=== PATIENT | male | born 1935 | race American Indian/Alaskan Native ===

== ENCOUNTER 2018-08-01 11:05 | Inpatient (IN) | payer MEDICARE ==
[2018-08-01 11:06] VITALS: BMI 19.2
[2018-08-01 13:43] LABS: VENOUS BLOOD GAS PCO2 40 mmHg (40-60); VENOUS BLOOD GAS PO2 34 mm/Hg (30-55); VENOUS BLOOD PH 7.43 (7.32-7.43)
--- NOTE | 2018-08-01 13:45 | ED PDOC ---
HPI: Altered Mental Status Time Seen by Provider: 08/01/18 11:28 Chief Complaint (Nursing): Weakness/Neurological Deficit Chief Complaint (Provider): Weakness/Neurological Deficit History Per: Patient, EMS History/Exam Limitations: None Onset/Duration Of Symptoms: Days Additional Complaint(s): 82 year old male with a past medical history of end stage renal disease who was brought to the ED by EMS for medical evaluation. According to home health care nurse who visits daily, patient appears to be weak and confuse for several days. He is supposed to go to dialysis 3 times a week but has not gone in 1 week. Patient complains of chest pain and states that he has had it for a while. He does not walk and he doesnt know why he is here. Patient cannot remember any of his doctors names. Patient denies any shortness of breath or headaches. PMD: unclear E [employer] Merchant: Dr. Matamoros (Doctor was in Ed and identified patient as under his care) Past Medical History Reviewed: Historical Data, Nursing Documentation, Vital Signs Vital Signs: Last Vital Signs Temp 98.5 F 08/01/18 11:07 Pulse 91 H 08/01/18 11:07 Resp 18 08/01/18 11:07 BP 142/82 08/01/18 11:07 Pulse Ox 99 08/01/18 11:07 - Medical History PMH: End Stage Renal Disease - Surgical History Other surgeries: left upper arm shunt - Family History Family History: States: Unknown Family Hx - Social History Current smoker - smoking cessation education provided: No Alcohol: None Drugs: Denies - Home Medications Home Medications: Ambulatory Orders Medication Instructions Recorded Carvedilol [Coreg] 6.25 mg PO Q12 08/01/18 Donepezil [Aricept] 10 mg PO HS 08/01/18 Fluticasone/Vilanterol [Breo 1 puff IH Q12 08/01/18 Ellipta 200-25 Mcg INH] Folic Acid/Vit B Complex and C 1 tab PO DAILY 08/01/18 [Renal Vitamin Tablet] Memantine [Namenda] 5 mg PO Q12 08/01/18 Pantoprazole Sodium [Protonix] 40 mg PO DAILY 08/01/18 RX: Allopurinol [Zyloprim] 100 mg PO DAILY 08/01/18 RX: Calcitriol [Rocaltrol] 1 mcg PO DAILY 08/01/18 Tamsulosin [Flomax] 0.4 mg PO DAILY 08/01/18 Umeclidinium [place] [Incruse 1 puff IH DAILY 08/01/18 Ellipta] amLODIPine [Norvasc] 5 mg PO DAILY 08/01/18 - Allergies Allergies/Adverse Reactions: Allergies Allergy/AdvReac Type Severity Reaction Status Date / Time No Known Allergies Allergy Verified 08/01/18 11:15 Review of Systems ROS Statement: Except As Marked, All Systems Reviewed And Found Negative Cardiovascular: Positive for: Chest Pain Respiratory: Negative for: Shortness of Breath Neurological: Positive for: Weakness (generalized ). Negative for: Headache Physical Exam - Reviewed Nursing Documentation Reviewed: Yes Vital Signs Reviewed: Yes - Physical Exam Appears: Positive for: Non-toxic, No Acute Distress (comfortable ) Head Exam: Positive for: ATRAUMATIC, NORMAL INSPECTION, NORMOCEPHALIC Skin: Positive for: Normal Color, Warm, DRY Eye Exam: Positive for: EOMI, Normal appearance, PERRL ENT: Positive for: Other (dry mucous membranes ) Neck: Positive for: Normal, Painless ROM Cardiovascular/Chest: Positive for: Regular Rate, Rhythm. Negative for: Murmur Respiratory: Positive for: Normal Breath Sounds. Negative for: Respiratory Distress Pulses-Radial (L): 2+ Pulses-Radial (R): 2+ Gastrointestinal/Abdominal: Positive for: Normal Exam, Soft. Negative for: Tenderness Extremity: Positive for: Normal ROM, Other (left upper arm shunt, chronic decubitus ulcers on both feet and ankles). Negative for: Deformity Neurologic/Psych: Positive for: Alert, Oriented (x3). Negative for: Motor/Se nsory Deficits - Laboratory Results Result Diagrams: 08/02/18 04:48 08/02/18 04:48 - ECG O2 Sat by Pulse Oximetry: 99 (RA) Pulse Ox Interpretation: Normal - Critical Care Total Time (In Min): 30 Documented Critical Care: Time excludes all time spent performint seperately billable procedures Medical Decision Making Medical Decision Making: Time: 12:07 Impression: chest pain, generalized weakness, end stage renal disease on dialysis and chronic decubitus ulcers Plan: --VBG --EKG --CMP --CPK --Magnesium --Troponin --CBC --Chest X-Ray --Ativan 2 mg IM --Blood Culture --Urine Culture Update 1400 Labs reviewed and reveal hyperkalemia and uremia. -Calcium gluconate 1 g IV --Insulin 5 unit IV -D50 IV -Albuterol 3ml INH -Kayexalate 15g PO [address] Matamoros who will arrange emergent dyalisis today Scribe Attestation: Documented by Malu Stoner, acting as a scribe for Crystal Wiseman. Provider Scribe Attestation: All medical record entries made by the Scribe were at my direction and personally dictated by me. I have reviewed the chart and agree that the record a ccurately reflects my personal performance of the history, physical exam, medical decision making, and the department course for this patient. I have also personally directed, reviewed, and agree with the discharge instructions and disposition. Disposition - Clinical Impression Clinical Impression: Hyperkalemia, End stage renal disease, Decubitus ulcer, Volume overload - Patient ED Disposition Is Patient to be Admitted: Yes Discussed With : Hailey Aparicio Doctor Will See Patient In The: ED Counseled Patient/Family Regarding: Studies Performed, Diagnosis - Disposition Disposition Time: 14:00 Condition: FAIR - Pt Status Changed To: Hospital Disposition Of: Inpatient - Admit Certification Admit to Inpatient:: After my assessment, the patient will require hospitaliza tion for at least two midnights. This is because of the severity of symptoms shown, intensity of services needed, and/or the medical risk in this patient being treated as an outpatient. - POA Present On Arrival: Pressure Ulcer
[2018-08-01 14:01] LABS: BASO # 0.1 K/uL (0.0-0.2); BASO % 0.4 % (0.0-2.0); HEMOGLOBIN 9.6 g/dL (12.0-18.0); LYMPH # 0.3 K/uL (1.0-4.3); LYMPH % 1.9 % (20.0-40.0); MEAN CELL VOLUME 95.7 fl (80.0-94.0); MEAN CORPUSCULAR HEMOGLOBIN 30.7 pg (27.0-31.0); MEAN CORPUSCULAR HGB CONC 32.1 g/dL (33.0-37.0); MEAN PLATELET VOLUME 8.3 fl (7.2-11.7); MONO % 6.4 % (0.0-10.0); NEUT # 13.7 K/uL (1.8-7.0); NEUT % 91.3 % (50.0-75.0); NRBC % 0.3 % (0.0-0.0); PLATELET COUNT 198 K/uL (130-400); RBC 3.13 Mil/uL (4.40-5.90); RED CELL DISTRIBUTION WIDTH 21.3 % (11.5-14.5)
[2018-08-01 14:07] LABS: TROPONIN I 0.061 ng/mL (0.00-0.120)
[2018-08-01 15:07] LABS: ALBUMIN 3.4 g/dL (3.5-5.0); CALCIUM 9.7 mg/dL (8.4-10.2)
[2018-08-01] MEDS ORDERED: Insulin Regular 100 units/ml IV STA (15:15)
[2018-08-01] MEDS ORDERED: Albuterol 0.083% Inhal Sol (2.5 mg/3 mL) UD INH ONE (15:16)
[2018-08-01] MEDS ORDERED: Sod Polystyrene Sulf 15 gm/60 ml Susp PO ONE (15:16)
[2018-08-01] MEDS ORDERED: Dextrose 50% SYRINGE Inj (50 ml) IVP ONE (15:16)
[2018-08-01] MEDS ORDERED: Insulin Regular 100 units/ml ONE (15:28)
[2018-08-01] MEDS ORDERED: Albuterol 0.083% Inhal Sol (2.5 mg/3 mL) UD ONE (15:29)
[2018-08-01] MEDS ORDERED: Dextrose 50% SYRINGE Inj (50 ml) ONE (15:29)
--- NOTE | 2018-08-01 15:35 | RAD ---
Date of service: 08/01/2018 PROCEDURE: CHEST RADIOGRAPH, 1 VIEW HISTORY: chest pain COMPARISON: Chest radiograph dated 03/22/2010 FINDINGS: LUNGS: Medial left lower lobe lobe/retrocardiac infiltrate. PLEURA: No pneumothorax or pleural fluid seen. CARDIOVASCULAR: Aortic atherosclerotic calcifications. Cardiomediastinal silhouette stably enlarged. OSSEOUS STRUCTURES: Unchanged. VISUALIZED UPPER ABDOMEN: Normal. OTHER FINDINGS: Left axillary vascular stent. IMPRESSION: Retrocardiac infiltrate.
--- NOTE | 2018-08-01 15:38 | CP.PCM.HP ---
<Hailey Aparicio - Last Filed: 08/02/18 10:23> History of Present Illness - History of Present Illness History of Present Illness: HPI: 82 YO male with PMHx of ESRD on HD, HTN, dementia, was brought to the hospital by ambulance for evaluation. Home health care nurse states that patient has been weaker then usual. Per RN, pt did not recieve HD in the past week as scheduled, lives at home with . Pt this time is not alert or oriented. Denies chest pain, dyspnea, abdominal pain. PMD: unknown Per chart review PMHx of ESRD on HD, HTN, dementia Allergies: NKDA Present on Admission - Present on Admission Any Indicators Present on Admission: No Review of Systems - Constitutional Constitutional: absent: Fever - Cardiovascular Cardiovascular: absent: Chest Pain - Respiratory Respiratory: absent: Dyspnea - Gastrointestinal Gastrointestinal: absent: Abdominal Pain Past Patient History - Past Social History Alcohol: None Drugs: Denies Home Situation {Lives}: With Family Meds Allergies/Adverse Reactions: Allergies Allergy/AdvReac Type Severity Reaction Status Date / Time No Known Allergies Allergy Verified 08/01/18 11:15 Physical Exam - Constitutional Appears: No Acute Distress, Other (NC on 2L, NAD, unkempt ) - Head Exam Head Exam: NORMAL INSPECTION - ENT Exam ENT Exam: Mucous Membranes Moist - Respiratory Exam Respiratory Exam: Clear to Auscultation Bilateral, NORMAL BREATHING PATTERN. absent: Wheezes - Cardiovascular Exam Cardiovascular Exam: REGULAR RHYTHM, +S1, +S2 - GI/Abdominal Exam GI & Abdominal Exam: Normal Bowel Sounds, Soft. absent: Tenderness - Extremities Exam Additional comments: Fistula noted in L arm, palpable thrill appreciated DTI and small ulcerations noted in the lower ext b/l, no weeping noted Results - Vital Signs Recent Vital Signs: Last Vital Signs Temp 98.5 F 08/01/18 11:07 Pulse 91 H 08/01/18 11:07 Resp 18 08/01/18 11:07 BP 142/82 08/01/18 11:07 Pulse Ox 99 08/01/18 15:28 - Labs Result Diagrams: 08/02/18 04:48 08/02/18 04:48 Labs: Laboratory Results - last 24 hr 08/01/18 08/01/18 08/01/18 11:18 12:07 13:20 WBC 15.0 H RBC 3.13 L Hgb 9.6 L Hct 30.0 L MCV 95.7 H MCH 30.7 MCHC 32.1 L RDW 21.3 H Plt Count 198 MPV 8.3 Neut % (Auto) 91.3 H Lymph % (Auto) 1.9 L [place] % (Auto) 6.4 Eos % (Auto) 0.0 Baso % (Auto) 0.4 Neut # (Auto) 13.7 H Lymph # (Auto) 0.3 L [place] # (Auto) 1.0 H Eos # (Auto) 0.0 Baso # (Auto) 0.1 pO2 34 VBG pH 7.43 VBG pCO2 40 VBG HCO3 26.0 VBG Total CO2 27.7 VBG O2 Sat (Calc) 65.7 H VBG Base Excess 2.0 VBG Potassium 7.0 H* Sodium 142.0 Chloride 107.0 Glucose 96 Lactate 2.6 H FiO2 21.0 Crit Value Called To Sarah brown md Crit Value Called By 15 Crit Value Read Back Y Blood Gas Notified Time 1343 Potassium Carbon Dioxide Anion Gap BUN Creatinine Est GFR ( Amer) Est GFR (Non-Af Amer) POC Glucose (mg/dL) 110 Random Glucose Calcium Magnesium Total Bilirubin AST ALT Alkaline Phosphatase Total Creatine Kinase Troponin I Total Protein Albumin Globulin Albumin/Globulin Ratio Venous Blood Potassium 7.0 H* 08/01/18 14:50 WBC RBC Hgb Hct MCV MCH MCHC RDW Plt Count MPV Neut % (Auto) Lymph % (Auto) Sutton % (Auto) Eos % (Auto) Baso % (Auto) Neut # (Auto) Lymph # (Auto) Sutton # (Auto) Eos # (Auto) Baso # (Auto) pO2 VBG pH VBG pCO2 VBG HCO3 VBG Total CO2 VBG O2 Sat (Calc) VBG Base Excess VBG Potassium Sodium 142 Chloride 104 Glucose Lactate FiO2 Crit Value Called To Crit Value Called By Crit Value Read Back Blood Gas Notified Time Potassium 6.8 H* Carbon Dioxide 22 Anion Gap 23 H BUN 125 H* Creatinine 12.4 H* Est GFR ( Amer) 5 Est GFR (Non-Af Amer) 4 POC Glucose (mg/dL) Random Glucose 95 Calcium 9.7 Magnesium 3.0 H Total Bilirubin 0.6 AST 70 H ALT 25 Alkaline Phosphatase 80 Total Creatine Kinase 819 H Troponin I 0.0610 Total Protein 6.6 Albumin 3.4 L Globulin 3.3 Albumin/Globulin Ratio 1.0 Venous Blood Potassium Assessment & Plan - Assessment and Plan (Free Text) Assessment: Assessment/Plan: 82 YO male with PMHx of ESRD on HD, HTN, dementia is admitted for ESRD (ON HD), and hyperkalemia. ESRD, on HD -poor renal functions, missed HD -Nephrology consulted, urgent HD -follow up post HD blood work Hyperkalemia -likely 2/2 to missed HD -Insulin, albuterol INH, calcium gluconate -EKG with 1st deg block, no acute ST changes -follow up K post HD Pneumonia -CXR sig for retrocardaic infiltrate -afebrile, neutrophilia -follow up Bcx, Ucx, sputum cx and wound cx -start azithromycin and Ceftriaxone B/L foot ulcers -chronic -podiatry on board -MRI pending, follow up Anemia -anemia of chronic disease, ESRD -follow up DVT prolx -Heparin SC Plan as ordered <oRnny Guillen K - Last Filed: 08/03/18 13:31> Results - Vital Signs Recent Vital Signs: Last Vital Signs Temp 97.1 F L 08/03/18 12:33 Pulse 72 08/03/18 12:55 Resp 20 08/03/18 12:33 BP 96/44 L 08/03/18 12:55 Pulse Ox 93 L 08/03/18 12:33 - Labs Result Diagrams: 08/03/18 05:25 08/03/18 05:25 Labs: Laboratory Results - last 24 hr 08/02/18 08/02/18 08/02/18 16:03 21:41 22:36 WBC RBC Hgb Hct MCV MCH MCHC RDW Plt Count Sodium Potassium Chloride Carbon Dioxide Anion Gap BUN Creatinine Est GFR ( Amer) Est GFR (Non-Af Amer) POC Glucose (mg/dL) 71 76 86 Random Glucose Calcium Phosphorus Magnesium Total Bilirubin AST ALT Alkaline Phosphatase Total Protein Albumin Globulin Albumin/Globulin Ratio Blood Type Antibody Screen Crossmatch BBK History Checked 08/03/18 08/03/18 08/03/18 05:25 05:25 05:51 WBC 8.4 RBC 2.64 L Hgb 7.9 L Hct 24.4 L MCV 92.7 MCH 30.1 MCHC 32.5 L RDW 21.1 H Plt Count 153 Sodium 139 Potassium 5.1 H Chloride 100 Carbon Dioxide 28 Anion Gap 16 BUN 74 H Creatinine 7.9 H* D Est GFR ( Amer) 8 Est GFR (Non-Af Amer) 7 POC Glucose (mg/dL) 97 Random Glucose 93 Calcium 8.8 Phosphorus 7.4 H Magnesium 2.6 H Total Bilirubin 0.4 AST 95 H D ALT 36 Alkaline Phosphatase 72 Total Protein 5.7 L Albumin 2.7 L Globulin 3.1 Albumin/Globulin Ratio 0.9 L Blood Type Antibody Screen Crossmatch BBK History Checked 08/03/18 10:08 WBC RBC Hgb Hct MCV MCH MCHC RDW Plt Count Sodium Potassium Chloride Carbon Dioxide Anion Gap BUN Creatinine Est GFR ( Amer) Est GFR (Non-Af Amer) POC Glucose (mg/dL) Random Glucose Calcium Phosphorus Magnesium Total Bilirubin AST ALT Alkaline Phosphatase Total Protein Albumin Globulin Albumin/Globulin Ratio Blood Type B POSITIVE Antibody Screen Negative Crossmatch See Detail BBK History Checked Patient has bt Assessment & Plan - Assessment and Plan (Free Text) Assessment: Patient was personally seen and examined by me in rounds with residents. Available labs and diagnostic data reviewed. Case, Patient's condition and management plan discussed with residents in rounds. Agree with resident's progress note. Plan: As ordered.
[2018-08-01 15:46] LABS: BANDS 1 % (0-2); LYMPHOCYTE 3 % (20-50); MONOCYTE 6 % (0-10); NEUTROPHIL 90 % (42-75); TOTAL CELLS COUNTED 100
[2018-08-01 15:48] LABS: HYPERSEGMENTATION PRESENT; PLATELET ESTIMATE NORMAL (NORMAL)
--- NOTE | 2018-08-01 16:29 | CP.PCM.CON ---
History of Present Illness - History of Present Illness History of Present Illness: Podiatry Consult for Dr. Garcia: 82 year old male patient, with PMHx of EDRD, HTN, dementia, seen and evaluated, for L decubitus ulcers. Patient states that his feet hurt when they are touched. Unable to obtain history secondary to altered mental status. Per chart reviewed: PMHx: ESRD, HTN, Dementia ALL: NKDA Review of Systems - Constitutional Constitutional: As Per HPI Past Patient History - Past Social History Alcohol: None Drugs: Denies Meds Allergies/Adverse Reactions: Allergies Allergy/AdvReac Type Severity Reaction Status Date / Time No Known Allergies Allergy Verified 08/01/18 11:15 - Medications Medications: Current Medications Allopurinol (Zyloprim) 100 mg PO DAILY MICA Amlodipine Besylate (Norvasc) 5 mg PO DAILY MICA Calcitriol (Rocaltrol) 1 mcg PO DAILY MICA Carvedilol (Coreg) 6.25 mg PO Q12 MICA Donepezil HCl (Aricept) 10 mg PO HS MICA Home Med (Umeclidinium [place] [Incruse Ellipta]) 1 puff IH DAILY MICA Calcium Gluconate 4.6 meq/ (Sodium Chloride) 59.8924 mls @ 59.892 mls/hr IV ONCE ONE Stop: 08/01/18 16:29 Last Admin: 08/01/18 15:57 Dose: 59.892 mls/hr Memantine (Namenda) 5 mg PO Q12 MICA Pantoprazole Sodium (Protonix Ec Tab) 40 mg PO DAILY MICA Fluticasone/Salmeterol (Advair Diskus 250/50) 1 puff IH Q12 MICA Tamsulosin HCl (Flomax) 0.4 mg PO DAILY MICA Vitamin B Complex/Vit C/Folic Acid (Nephro-Jules) 1 tab PO DAILY MICA Physical Exam - Constitutional Appears: Non-toxic, No Acute Distress - Head Exam Head Exam: ATRAUMATIC, NORMOCEPHALIC - Extremities Exam Additional comments: B/L lower extremity focused exam: Vasc: DP/PT 1/4, CFT > 3 seconds, TG warm to warm, no pedal edema present Ortho: Pain with palpation of feet bilaterally, Hammertoe deformity 2-5 bilaterally with crossover deformity of 2nd digit, HAV deformity bilaterally, no pain with calf compression Neuro: Gross sensation intact, unable to assess protective sensation secondary to patient's mental status Derm: LLE: DTI to left heel secondary to pressure, Superficial ulceration secondary to skin breakdown, measuring approximately 3.0x1.0x.1cm,with 100% granular base, no drainage, no purulence, no erythema, no clinical signs of infection noted. Necrotic distal tip of the hallux with color changes, no drainage, no purulence, no erythema. Friable, xerotic skin noted to b/l lower extremities. Elongated, dystrophic nail s x10. Interdigital maceration to all webspaces. Results - Vital Signs Recent Vital Signs: Last Vital Signs Temp 98.5 F 08/01/18 11:07 Pulse 91 H 08/01/18 11:07 Resp 18 08/01/18 11:07 BP 142/82 08/01/18 11:07 Pulse Ox 99 08/01/18 15:28 - Labs Result Diagrams: 08/02/18 04:48 08/02/18 04:48 Labs: Laboratory Results - last 24 hr 08/01/18 08/01/18 08/01/18 11:18 12:07 13:20 WBC 15.0 H RBC 3.13 L Hgb 9.6 L Hct 30.0 L MCV 95.7 H MCH 30.7 MCHC 32.1 L RDW 21.3 H Plt Count 198 MPV 8.3 Neut % (Auto) 91.3 H Lymph % (Auto) 1.9 L [place] % (Auto) 6.4 Eos % (Auto) 0.0 Baso % (Auto) 0.4 Neut # (Auto) 13.7 H Lymph # (Auto) 0.3 L [place] # (Auto) 1.0 H Eos # (Auto) 0.0 Baso # (Auto) 0.1 Neutrophils % (Manual) 90 H Band Neutrophils % 1 Lymphocytes % (Manual) 3 L Monocytes % (Manual) 6 Hypersegmented Polys Present Platelet Estimate Normal pO2 34 VBG pH 7.43 VBG pCO2 40 VBG HCO3 26.0 VBG Total CO2 27.7 VBG O2 Sat (Calc) 65.7 H VBG Base Excess 2.0 VBG Potassium 7.0 H* Sodium 142.0 Chloride 107.0 Glucose 96 Lactate 2.6 H FiO2 21.0 Crit Value Called To Sarah brown md Crit Value Called By 15 Crit Value Read Back Y Blood Gas Notified Time 1343 Potassium Carbon Dioxide Anion Gap BUN Creatinine Est GFR ( Amer) Est GFR (Non-Af Amer) POC Glucose (mg/dL) 110 Random Glucose Calcium Magnesium Total Bilirubin AST ALT Alkaline Phosphatase Total Creatine Kinase Troponin I Total Protein Albumin Globulin Albumin/Globulin Ratio Venous Blood Potassium 7.0 H* 08/01/18 14:50 WBC RBC Hgb Hct MCV MCH MCHC RDW Plt Count MPV Neut % (Auto) Lymph % (Auto) Bell % (Auto) Eos % (Auto) Baso % (Auto) Neut # (Auto) Lymph # (Auto) Bell # (Auto) Eos # (Auto) Baso # (Auto) Neutrophils % (Manual) Band Neutrophils % Lymphocytes % (Manual) Monocytes % (Manual) Hypersegmented Polys Platelet Estimate pO2 VBG pH VBG pCO2 VBG HCO3 VBG Total CO2 VBG O2 Sat (Calc) VBG Base Excess VBG Potassium Sodium 142 Chloride 104 Glucose Lactate FiO2 Crit Value Called To Crit Value Called By Crit Value Read Back Blood Gas Notified Time Potassium 6.8 H* Carbon Dioxide 22 Anion Gap 23 H BUN 125 H* Creatinine 12.4 H* Est GFR ( Amer) 5 Est GFR (Non-Af Amer) 4 POC Glucose (mg/dL) Random Glucose 95 Calcium 9.7 Magnesium 3.0 H Total Bilirubin 0.6 AST 70 H ALT 25 Alkaline Phosphatase 80 Total Creatine Kinase 819 H Troponin I 0.0610 Total Protein 6.6 Albumin 3.4 L Globulin 3.3 Albumin/Globulin Ratio 1.0 Venous Blood Potassium Assessment & Plan - Assessment and Plan (Free Text) Assessment: 82 year old male patient, with PMHx of EDRD, HTN, dementia, seen and evaluated, for L decubitus ulcers. Plan: Patient seen and evaluated Discussed patient in detail with Dr. Jose Grayebgeorgiana, WBC 15.0 Foot x-rays ordered; pending MRI of LLE ordered; pending Local wound care to LLE: betadine, DSD Will continue to follow Thank you for the consult - Date & Time Date: 08/01/18 Time: 16:28
[2018-08-01] MEDS ORDERED: Albuterol 0.083% Inhal Sol (2.5 mg/3 mL) UD INH SCH (17:15)
[2018-08-01] MEDS ORDERED: Azithromycin 500 MG in Sodium Chloride 0.9% 250 ML IVPB STA (17:40)
[2018-08-01] MEDS ORDERED: Sodium Chloride 3% for Inhalation 4 ML VIAL.NEB IH PRN (17:41)
--- NOTE | 2018-08-01 17:49 | RAD ---
Date of service: 08/01/2018 PROCEDURE: Bilateral Feet Radiographs. HISTORY: b/l foot ulcerations and deformity COMPARISON: None. FINDINGS: BONES: Right Foot: No acute fracture. Pes planus. Left Foot: No acute fracture. Pes planus. JOINTS: Right Foot: Joint space narrowing. Left Foot: Joint-space narrowing. SOFT TISSUES: Right Foot: Normal. Left Foot: Normal. OTHER FINDINGS: None. IMPRESSION: Markedly limited evaluation due to patient positioning. No demonstrated fracture or dislocation. Pes planus bilaterally. Degenerative changes.
--- NOTE | 2018-08-01 18:24 | CP.PCM.CON ---
History of Present Illness - History of Present Illness History of Present Illness: This 82 years of age male known with end-stage renal disease on maintenance hemodialysis. He did not show up for 1 week for dialysis and he came to the emergency room as noted in the emergency room note with dizziness weakness patient is lethargic we could not get much information. Blood test showed severe elevation BUN and creatinine related to missing dialysis. PMH Dementia. Hypertension. End-stage renal disease. Noncompliance. Past medical history Social history not available Review of Systems - Constitutional Constitutional: Anorexia. absent: Chills - EENT Nose/Mouth/Throat: absent: Epistaxis, Sore Throat - Cardiovascular Cardiovascular: Edema, Leg Ulcers. absent: Acrocyanosis, Chest Pain - Gastrointestinal Gastrointestinal: Nausea. absent: Abdominal Pain, Coffee Ground Emesis - Genitourinary Genitourinary: Nocturia - Musculoskeletal Musculoskeletal: absent: Muscle Weakness, Numbness - Neurological Neurological: Abnormal Gait, Confusion, Lack of Coordination, Memory Loss, Weakness. absent: Convulsions - Psychiatric Psychiatric: As Per HPI - Endocrine Endocrine: Change in Body Appearance, Fatigue - Hematologic/Lymphatic Hematologic: absent: Easy Bleeding Past Patient History - Past Social History Alcohol: None Drugs: Denies Home Situation {Lives}: With Family Meds Allergies/Adverse Reactions: Allergies Allergy/AdvReac Type Severity Reaction Status Date / Time No Known Allergies Allergy Verified 08/01/18 11:15 - Medications Medications: Current Medications Albuterol Sulfate (Albuterol 0.083% Inhal Mayte (2.5 Mg/3 Ml) Ud) 2.5 mg INH Q15MIN [facility] Stop: 08/06/18 17:16 Allopurinol (Zyloprim) 100 mg PO DAILY [facility] Amlodipine Besylate (Norvasc) 5 mg PO DAILY [facility] Calcitriol (Rocaltrol) 1 mcg PO DAILY [facility] Carvedilol (Coreg) 6.25 mg PO Q12 [facility] Donepezil HCl (Aricept) 10 mg PO HS [facility] Home Med (Umeclidinium [place] [Incruse Ellipta]) 1 puff IH DAILY [facility] Ceftriaxone Sodium 1 gm/ (Sodium Chloride) 100 mls @ 100 mls/hr IVPB DAILY [facility]; Protocol Azithromycin 500 mg/ Sodium (Chloride) 250 mls @ 250 mls/hr IVPB DAILY [facility]; Protocol Azithromycin 500 mg/ Sodium (Chloride) 250 mls @ 250 mls/hr IVPB STAT ST[facility]; Protocol Stop: 08/01/18 18:39 Memantine (Namenda) 5 mg PO Q12 [facility] Pantoprazole Sodium (Protonix Ec Tab) 40 mg PO DAILY [facility] Fluticasone/Salmeterol (Advair Diskus 250/50) 1 puff IH Q12 [facility] Tamsulosin HCl (Flomax) 0.4 mg PO DAILY [facility] Vitamin B Complex/Vit C/Folic Acid (Nephro-Jules) 1 tab PO DAILY [facility] Physical Exam - Constitutional Appears: No Acute Distress - Eye Exam Eye Exam: Conjunctival injection - ENT Exam ENT Exam: Mucous Membranes Moist - Neck Exam Neck exam: Negative for: Lymphadenopathy - Respiratory Exam Respiratory Exam: Rhonchi, NORMAL BREATHING PATTERN. absent: Chest Wall Tenderness - Cardiovascular Exam Cardiovascular Exam: absent: Gallop, JVD, Rubs - GI/Abdominal Exam GI & Abdominal Exam: Normal Bowel Sounds. absent: Guarding - Extremities Exam Extremities exam: Positive for: pedal edema. Negative for: calf tenderness - Back Exam Back exam: absent: CVA tenderness (L), CVA tenderness (R) - Neurological Exam Neurological exam: Altered - Psychiatric Exam Psychiatric exam: Flat Affect Results - Vital Signs Recent Vital Signs: Last Vital Signs Temp 98.5 F 08/01/18 11:07 Pulse 91 H 08/01/18 11:07 Resp 18 08/01/18 11:07 BP 142/82 08/01/18 11:07 Pulse Ox 99 08/01/18 15:28 - Labs Result Diagrams: 08/02/18 04:48 08/02/18 04:48 Labs: Laboratory Results - last 24 hr 08/01/18 08/01/18 08/01/18 11:18 12:07 13:20 WBC 15.0 H RBC 3.13 L Hgb 9.6 L Hct 30.0 L MCV 95.7 H MCH 30.7 MCHC 32.1 L RDW 21.3 H Plt Count 198 MPV 8.3 Neut % (Auto) 91.3 H Lymph % (Auto) 1.9 L [place] % (Auto) 6.4 Eos % (Auto) 0.0 Baso % (Auto) 0.4 Neut # (Auto) 13.7 H Lymph # (Auto) 0.3 L [place] # (Auto) 1.0 H Eos # (Auto) 0.0 Baso # (Auto) 0.1 Neutrophils % (Manual) 90 H Band Neutrophils % 1 Lymphocytes % (Manual) 3 L Monocytes % (Manual) 6 Hypersegmented Polys Present Platelet Estimate Normal pO2 34 VBG pH 7.43 VBG pCO2 40 VBG HCO3 26.0 VBG Total CO2 27.7 VBG O2 Sat (Calc) 65.7 H VBG Base Excess 2.0 VBG Potassium 7.0 H* Sodium 142.0 Chloride 107.0 Glucose 96 Lactate 2.6 H FiO2 21.0 Crit Value Called To Sarah brown md Crit Value Called By 15 Crit Value Read Back Y Blood Gas Notified Time 1343 Potassium Carbon Dioxide Anion Gap BUN Creatinine Est GFR ( Amer) Est GFR (Non-Af Amer) POC Glucose (mg/dL) 110 Random Glucose Calcium Magnesium Total Bilirubin AST ALT Alkaline Phosphatase Total Creatine Kinase Troponin I Total Protein Albumin Globulin Albumin/Globulin Ratio Venous Blood Potassium 7.0 H* 08/01/18 14:50 WBC RBC Hgb Hct MCV MCH MCHC RDW Plt Count MPV Neut % (Auto) Lymph % (Auto) [place] % (Auto) Eos % (Auto) Baso % (Auto) Neut # (Auto) Lymph # (Auto) [place] # (Auto) Eos # (Auto) Baso # (Auto) Neutrophils % (Manual) Band Neutrophils % Lymphocytes % (Manual) Monocytes % (Manual) Hypersegmented Polys Platelet Estimate pO2 VBG pH VBG pCO2 VBG HCO3 VBG Total CO2 VBG O2 Sat (Calc) VBG Base Excess VBG Potassium Sodium 142 Chloride 104 Glucose Lactate FiO2 Crit Value Called To Crit Value Called By Crit Value Read Back Blood Gas Notified Time Potassium 6.8 H* Carbon Dioxide 22 Anion Gap 23 H BUN 125 H* Creatinine 12.4 H* Est GFR ( Amer) 5 Est GFR (Non-Af Amer) 4 POC Glucose (mg/dL) Random Glucose 95 Calcium 9.7 Magnesium 3.0 H Total Bilirubin 0.6 AST 70 H ALT 25 Alkaline Phosphatase 80 Total Creatine Kinase 819 H Troponin I 0.0610 Total Protein 6.6 Albumin 3.4 L Globulin 3.3 Albumin/Globulin Ratio 1.0 Venous Blood Potassium Assessment & Plan (1) Anemia in chronic kidney disease, on chronic dialysis Status: Acute (2) End stage renal disease Assessment and Plan: End-stage renal disease Missing dialysis for 1 week Hyperkalemia Confusion and dizziness Dementia Retrocardiac infiltrate chest x-ray Hyperphosphatemia Secondary hyperparathyroidism Volume overloaded Recommendation Emergent hemodialysis Order was given We could not get consent because he is lethargic and patient needed dialysis badly Antibiotics with a renal dose EPO for the anemia Status: Acute (3) Hyperkalemia Status: Acute
[2018-08-01] MEDS ORDERED: Azithromycin 500 MG IV IVPB ONE (18:49)
[2018-08-01] MEDS: Fluticasone-Salmeterol 250-50mcg Diskus IH SCH (23:00)
--- NOTE | 2018-08-02 00:07 | CARD ---
APPROVED REPORT Date of service: 08/01/2018 EKG Measurement Heart [id number] <Conclusion> Sinus rhythm with premature atrial complexes Left axis deviation Incomplete right bundle branch block ST & T wave abnormality, consider lateral ischemia Abnormal ECG
[2018-08-02 05:36] LABS: BASO % 0.4 % (0.0-2.0); HEMOGLOBIN 8.5 g/dL (12.0-18.0); LYMPH # 0.2 K/uL (1.0-4.3); LYMPH % 2.7 % (20.0-40.0); MEAN CELL VOLUME 92.1 fl (80.0-94.0); MEAN CORPUSCULAR HEMOGLOBIN 29.7 pg (27.0-31.0); MEAN CORPUSCULAR HGB CONC 32.3 g/dL (33.0-37.0); MEAN PLATELET VOLUME 8.1 fl (7.2-11.7); MONO # 0.8 K/uL (0.0-0.8); NEUT # 7.8 K/uL (1.8-7.0); NEUT % 87.9 % (50.0-75.0); NRBC % 0.2 % (0.0-0.0); RBC 2.86 Mil/uL (4.40-5.90); RED CELL DISTRIBUTION WIDTH 20.8 % (11.5-14.5); WHITE BLOOD COUNT 8.8 K/uL (4.8-10.8)
[2018-08-02 05:52] LABS: CALCIUM 8.9 mg/dL (8.4-10.2)
--- NOTE | 2018-08-02 08:33 | CP.PCM.PN ---
Subjective - Date & Time of Evaluation Date of Evaluation: 08/02/18 Time of Evaluation: 08:30 - Subjective Subjective: Patient remained lethargic We could not get any history from him Vital signs noted to be stable No new event reported and the patient completed hemodialysis last night Objective - Vital Signs/Intake and Output Vital Signs (last 24 hours): Temp Pulse Resp BP Pulse Ox 97.7 F 90 20 93/52 L 90 L 08/02/18 08:26 08/02/18 08:26 08/02/18 08:26 08/02/18 08:26 08/02/18 08:26 - Medications Medications: Current Medications Albuterol Sulfate (Albuterol 0.083% Inhal Mayte (2.5 Mg/3 Ml) Ud) 2.5 mg INH Q15MIN [facility] Stop: 08/06/18 17:16 Allopurinol (Zyloprim) 100 mg PO DAILY [facility] Amlodipine Besylate (Norvasc) 5 mg PO DAILY [facility] Calcitriol (Rocaltrol) 1 mcg PO DAILY [facility] Carvedilol (Coreg) 6.25 mg PO Q12 [facility] Last Admin: 08/01/18 23:00 Dose: Not Given Donepezil HCl (Aricept) 10 mg PO HS [facility] Last Admin: 08/01/18 23:00 Dose: 10 mg Heparin Sodium (Porcine) (Heparin) 5,000 units SC Q8 [facility]; Protocol Last Admin: 08/02/18 01:54 Dose: 5,000 units Home Med (Umeclidinium [place] [Incruse Ellipta]) 1 puff IH DAILY [facility] Ceftriaxone Sodium 1 gm/ (Sodium Chloride) 100 mls @ 100 mls/hr IVPB DAILY [facility]; Protocol Azithromycin 500 mg/ Sodium (Chloride) 250 mls @ 250 mls/hr IVPB DAILY [facility]; Protocol Lorazepam (Ativan) 0.5 mg IM Q6 PRN PRN Reason: Agitation Memantine (Namenda) 5 mg PO Q12 [facility] Last Admin: 08/01/18 23:00 Dose: Not Given Pantoprazole Sodium (Protonix Ec Tab) 40 mg PO DAILY [facility] Fluticasone/Salmeterol (Advair Diskus 250/50) 1 puff IH Q12 [facility] Last Admin: 08/01/18 23:00 Dose: Not Given Tamsulosin HCl (Flomax) 0.4 mg PO DAILY [facility] Vitamin B Complex/Vit C/Folic Acid (Nephro-Jules) 1 tab PO DAILY [facility] - Labs Labs: 08/02/18 04:48 08/02/18 04:48 - Constitutional Appears: No Acute Distress - Eye Exam Eye Exam: Conjunctival injection - ENT Exam ENT Exam: Mucous Membranes Moist - Neck Exam Neck Exam: absent: Lymphadenopathy - Respiratory Exam Respiratory Exam: NORMAL BREATHING PATTERN. absent: Chest Wall Tenderness - Cardiovascular Exam Cardiovascular Exam: absent: Gallop, JVD, Rubs - GI/Abdominal Exam GI & Abdominal Exam: Soft, Normal Bowel Sounds - Extremities Exam Extremities Exam: absent: Calf Tenderness - Back Exam Back Exam: absent: CVA tenderness (L), CVA tenderness (R) - Neurological Exam Neurological Exam: Altered - Psychiatric Exam Psychiatric exam: Flat Affect - Skin Skin Exam: absent: Cyanosis Assessment and Plan (1) Anemia in chronic kidney disease, on chronic dialysis Status: Acute (2) End stage renal disease Assessment & Plan: End-stage renal disease Left foot ulcer Hypertension Pneumonia as described in the x-ray Hyperphosphatemia Altered mental status with Alzheimer and dementia Possibly peripheral vascular disease? Patient Continue hemodialysis Monday Get serum phosphorus and PTH Podiatry follow-up for the foot ulcer Antibiotics Status: Acute (3) Hyperkalemia Status: Acute
[2018-08-02] MEDS ORDERED: Patient's Own Med (Umeclidinium Bromide [Incruse Ellipta] 1 PUFF) IH SCH (09:00)
[2018-08-02] MEDS: Azithromycin 500 MG in Sodium Chloride 0.9% 250 ML IVPB SCH (09:03)
[2018-08-02] MEDS: Fluticasone-Salmeterol 250-50mcg Diskus IH SCH ×3 (09:03→21:44)
[2018-08-02] MEDS: Multivitamin Vitamin B Complex (Nephro-Vite) Tab PO SCH (09:04)
[2018-08-02] MEDS: Pantoprazole 40 mg EC Tab PO SCH (09:05)
--- NOTE | 2018-08-02 09:09 | CP.PCM.PN ---
Subjective - Date & Time of Evaluation Date of Evaluation: 08/02/18 Time of Evaluation: 09:09 - Subjective Subjective: Podiatry Consult Note: Dr. Garcia 82 year old male patient seen and evaluated at bedside for L lower extremity ulcerations. Patient resting comfortably and in NAD. He states that he is doing better than yesterday. Denies N/V/F. Objective - Vital Signs/Intake and Output Vital Signs (last 24 hours): Temp Pulse Resp BP Pulse Ox 97.7 F 90 20 93/52 L 90 L 08/02/18 08:26 08/02/18 08:26 08/02/18 08:26 08/02/18 08:26 08/02/18 08:26 - Medications Medications: Current Medications Albuterol Sulfate (Albuterol 0.083% Inhal Mayte (2.5 Mg/3 Ml) Ud) 2.5 mg INH Q15MIN [facility] Stop: 08/06/18 17:16 Allopurinol (Zyloprim) 100 mg PO DAILY [facility] Last Admin: 08/02/18 09:05 Dose: Not Given Amlodipine Besylate (Norvasc) 5 mg PO DAILY [facility] Last Admin: 08/02/18 09:05 Dose: Not Given Calcitriol (Rocaltrol) 1 mcg PO DAILY [facility] Last Admin: 08/02/18 09:05 Dose: Not Given Carvedilol (Coreg) 6.25 mg PO Q12 [facility] Last Admin: 08/02/18 09:04 Dose: Not Given Donepezil HCl (Aricept) 10 mg PO HS [facility] Last Admin: 08/01/18 23:00 Dose: 10 mg Heparin Sodium (Porcine) (Heparin) 5,000 units SC Q8 [facility]; Protocol Last Admin: 08/02/18 09:04 Dose: 5,000 units Home Med (Umeclidinium [place] [Incruse Ellipta]) 1 puff IH DAILY [facility] Ceftriaxone Sodium 1 gm/ (Sodium Chloride) 100 mls @ 100 mls/hr IVPB DAILY [facility]; Protocol Last Admin: 08/02/18 09:02 Dose: 100 mls/hr Azithromycin 500 mg/ Sodium (Chloride) 250 mls @ 250 mls/hr IVPB DAILY [facility]; Protocol Last Admin: 08/02/18 09:03 Dose: 250 mls/hr Lorazepam (Ativan) 0.5 mg IM Q6 PRN PRN Reason: Agitation Memantine (Namenda) 5 mg PO Q12 [facility] Last Admin: 08/02/18 09:04 Dose: Not Given Pantoprazole Sodium (Protonix Ec Tab) 40 mg PO DAILY [facility] Last Admin: 08/02/18 09:05 Dose: Not Given Fluticasone/Salmeterol (Advair Diskus 250/50) 1 puff IH Q12 [facility] Last Admin: 08/02/18 09:03 Dose: 1 puff Tamsulosin HCl (Flomax) 0.4 mg PO DAILY [facility] Last Admin: 08/02/18 09:04 Dose: Not Given Vitamin B Complex/Vit C/Folic Acid (Nephro-Jules) 1 tab PO DAILY [facility] Last Admin: 08/02/18 09:04 Dose: Not Given - Labs Labs: 08/02/18 04:48 08/02/18 04:48 - Constitutional Appears: Non-toxic, No Acute Distress - Extremities Exam Additional comments: B/L lower extremity focused exam: Vasc: DP/PT 1/4, CFT > 3 seconds, TG warm to warm, no pedal edema present Ortho: Pain with palpation of feet bilaterally, Hammertoe deformity 2-5 bilaterally with crossover deformity of 2nd digit, HAV deformity bilaterally, no pain with calf compression Neuro: Gross sensation intact, unable to assess protective sensation secondary to patient's mental status Derm: LLE: DTI to left heel secondary to pressure, Superficial ulceration secondary to skin breakdown, measuring approximately 3.0x1.0x.1cm,with 100% granular base, no drainage, no purulence, no erythema, no clinical signs of infection noted. Necrotic distal tip of the hallux with color changes, no drainage, no purulence, no erythema. Friable, xerotic skin noted to b/l lower extremities. Elongated, dystrophic nails x10. Interdigital maceration to all webspaces. - Neurological Exam Neurological Exam: Alert, Awake, Oriented x3 - Psychiatric Exam Psychiatric exam: Normal Affect, Normal Mood Assessment and Plan - Assessment and Plan (Free Text) Assessment: 82 year old male patient seen and evaluated at bedside for L posterior ankle superficial ulceration and necrotic distal tip of hallux Plan: Patient seen and evaluated Discussed patient in detail with Dr. Garcia Afebrile, absent leukocytosis Foot x-rays ordered; No fracture or dislocation. Pes planus bilaterally, no degenerative changes MRI of LLE ordered; pending Local wound care to LLE: betadine, DSD Multipodus boots ordered; to be worn at all times while in bed Will continue to follow
--- NOTE | 2018-08-02 10:23 | CP.PCM.PN ---
<Hailey Aparicio - Last Filed: 08/02/18 10:27> Subjective - Date & Time of Evaluation Date of Evaluation: 08/02/18 Time of Evaluation: 07:30 - Subjective Subjective: urgent HD overnight Pt seen and examined by bedside this AM. Doing well, sleepy. Denies chest pain, dyspnea, n/v. Objective - Vital Signs/Intake and Output Vital Signs (last 24 hours): Temp Pulse Resp BP Pulse Ox 97.7 F 90 20 93/52 L 90 L 08/02/18 08:26 08/02/18 08:26 08/02/18 08:26 08/02/18 08:26 08/02/18 08:26 - Medications Medications: Current Medications Albuterol Sulfate (Albuterol 0.083% Inhal Mayte (2.5 Mg/3 Ml) Ud) 2.5 mg INH Q15MIN [facility] Stop: 08/06/18 17:16 Allopurinol (Zyloprim) 100 mg PO DAILY [facility] Last Admin: 08/02/18 09:05 Dose: Not Given Amlodipine Besylate (Norvasc) 5 mg PO DAILY [facility] Last Admin: 08/02/18 09:05 Dose: Not Given Calcitriol (Rocaltrol) 1 mcg PO DAILY [facility] Last Admin: 08/02/18 09:05 Dose: Not Given Carvedilol (Coreg) 6.25 mg PO Q12 [facility] Last Admin: 08/02/18 09:04 Dose: Not Given Donepezil HCl (Aricept) 10 mg PO HS [facility] Last Admin: 08/01/18 23:00 Dose: 10 mg Heparin Sodium (Porcine) (Heparin) 5,000 units SC Q8 [facility]; Protocol Last Admin: 08/02/18 09:04 Dose: 5,000 units Home Med (Umeclidinium [place] [Incruse Ellipta]) 1 puff IH DAILY [facility] Ceftriaxone Sodium 1 gm/ (Sodium Chloride) 100 mls @ 100 mls/hr IVPB DAILY [facility]; Protocol Last Admin: 08/02/18 09:02 Dose: 100 mls/hr Azithromycin 500 mg/ Sodium (Chloride) 250 mls @ 250 mls/hr IVPB DAILY [facility]; Protocol Last Admin: 08/02/18 09:03 Dose: 250 mls/hr Lorazepam (Ativan) 0.5 mg IM Q6 PRN PRN Reason: Agitation Memantine (Namenda) 5 mg PO Q12 [facility] Last Admin: 08/02/18 09:04 Dose: Not Given Pantoprazole Sodium (Protonix Ec Tab) 40 mg PO DAILY [facility] Last Admin: 08/02/18 09:05 Dose: Not Given Fluticasone/Salmeterol (Advair Diskus 250/50) 1 puff IH Q12 [facility] Last Admin: 08/02/18 09:28 Dose: Not Given Tamsulosin HCl (Flomax) 0.4 mg PO DAILY [facility] Last Admin: 08/02/18 09:04 Dose: Not Given Vitamin B Complex/Vit C/Folic Acid (Nephro-Jules) 1 tab PO DAILY [facility] Last Admin: 08/02/18 09:04 Dose: Not Given - Labs Labs: 08/02/18 04:48 08/02/18 04:48 - Constitutional Appears: No Acute Distress, Other (poor dentition, on 2 L NC ) - ENT Exam ENT Exam: Mucous Membranes Moist - Respiratory Exam Respiratory Exam: Rhonchi, NORMAL BREATHING PATTERN. absent: Rales - Cardiovascular Exam Cardiovascular Exam: REGULAR RHYTHM, +S1, +S2 - GI/Abdominal Exam GI & Abdominal Exam: Soft, Normal Bowel Sounds. absent: Tenderness - Extremities Exam Extremities Exam: absent: Calf Tenderness - Neurological Exam Neurological Exam: Awake. absent: Oriented x3 Assessment and Plan (1) Pneumonia Status: Acute (2) Anemia in chronic kidney disease, on chronic dialysis Status: Chronic (3) End stage renal disease Status: Chronic (4) Hyperkalemia Status: Acute - Assessment and Plan (Free Text) Assessment: Assessment/Plan: 82 YO male with PMHx of ESRD on HD, HTN, dementia is admitted for ESRD (ON HD), and hyperkalemia. Pneumonia -CXR sig for retrocardaic infiltrate -leukocytosis resolved with IV abx -afebrile -follow up Bcx, Ucx, sputum cx and wound cx -c/w azithromycin and Ceftriaxone ESRD, on HD -acute on chronic with worsening renal function -urgent HD overnight -Nephrology on consult Hyperkalemia -resolved - 2/2 to missed HD -s/p Insulin, albuterol INH, calcium gluconate -EKG with 1st deg block, no acute ST changes B/L foot ulcers -chronic -podiatry and WC on board -foot XR no acute findings -MRI pending, follow up Anemia -anemia of chronic disease, ESRD DVT prolx -Heparin SC Swallow screen and eval, IVFs Plan as ordered <Ronny Guillen - Last Filed: 08/03/18 13:31> Objective - Vital Signs/Intake and Output Vital Signs (last 24 hours): Temp Pulse Resp BP Pulse Ox 97.1 F L 72 20 96/44 L 93 L 08/03/18 12:33 08/03/18 12:55 08/03/18 12:33 08/03/18 12:55 08/03/18 12:33 - Medications Medications: Current Medications Albuterol Sulfate (Albuterol 0.083% Inhal Mayte (2.5 Mg/3 Ml) Ud) 2.5 mg INH Q15MIN [facility] Stop: 08/06/18 17:16 Allopurinol (Zyloprim) 100 mg PO DAILY [facility] Last Admin: 08/03/18 09:08 Dose: 100 mg Amlodipine Besylate (Norvasc) 5 mg PO DAILY [facility] Last Admin: 08/03/18 12:55 Dose: Not Given Calcitriol (Rocaltrol) 1 mcg PO DAILY [facility] Last Admin: 08/03/18 09:07 Dose: 1 mcg Carvedilol (Coreg) 6.25 mg PO Q12 [facility] Last Admin: 08/03/18 09:05 Dose: 6.25 mg Donepezil HCl (Aricept) 10 mg PO HS [facility] Last Admin: 08/02/18 21:45 Dose: 10 mg Heparin Sodium (Porcine) (Heparin) 5,000 units SC Q8 [facility]; Protocol Last Admin: 08/03/18 09:21 Dose: Not Given Ceftriaxone Sodium 1 gm/ (Sodium Chloride) 100 mls @ 100 mls/hr IVPB DAILY [facility]; Protocol Last Admin: 08/03/18 09:09 Dose: 100 mls/hr Azithromycin 500 mg/ Sodium (Chloride) 250 mls @ 250 mls/hr IVPB DAILY [facility]; Protocol Last Admin: 08/03/18 09:12 Dose: 250 mls/hr Lorazepam (Ativan) 0.5 mg IM Q6 PRN PRN Reason: Agitation Memantine (Namenda) 5 mg PO Q12 [facility] Last Admin: 08/03/18 09:07 Dose: 5 mg Pantoprazole Sodium (Protonix Ec Tab) 40 mg PO DAILY [facility] Last Admin: 08/03/18 09:07 Dose: 40 mg Fluticasone/Salmeterol (Advair Diskus 250/50) 1 puff IH Q12 [facility] Last Admin: 08/03/18 09:08 Dose: 1 puff Sevelamer Carbonate (Renvela) 2,400 mg PO TID [facility] Last Admin: 08/03/18 12:56 Dose: 2,400 mg Tamsulosin HCl (Flomax) 0.4 mg PO DAILY [facility] Last Admin: 08/03/18 09:06 Dose: 0.4 mg Vitamin B Complex/Vit C/Folic Acid (Nephro-Jules) 1 tab PO DAILY [facility] Last Admin: 08/03/18 09:08 Dose: 1 tab - Labs Labs: 08/03/18 05:25 08/03/18 05:25 Assessment and Plan - Assessment and Plan (Free Text) Assessment: Patient was personally seen and examined by me in rounds with residents. Available labs and diagnostic data reviewed. Case, Patient's condition and management plan discussed with residents in rounds. Agree with resident's progress note. Plan: As ordered.
[2018-08-02] MEDS ORDERED: Potassium Ch 20mEq in D5-1/2NS 1,000 ML IV SCH (10:30)
[2018-08-02] MEDS ORDERED: Povidone Iodine Topical 10% Sol ONE (10:59)
[2018-08-02 12:40] LABS: HEPATITIS B SURFACE AG Negative (NEGATIVE)
[2018-08-02 12:45] LABS: HEPATITIS B CORE AB NEGATIVE (NEGATIVE)
--- NOTE | 2018-08-02 17:05 | CARD ---
APPROVED REPORT Date of service: 08/02/2018 EXAM: Two-dimensional and M-mode echocardiogram with Doppler and color Doppler. Other Information Quality : GoodRhythm : NSR INDICATION Murmur 2D DIMENSIONS IVSd0.90 (0.7-1.1cm)LVDd5.23 (3.9-5.9cm) LVOT Diameter2.15 (1.8-2.4cm)PWd0.71 (0.7-1.1cm) IVSs1.69 (0.8-1.2cm)LVDs4.57 (2.5-4.0cm) FS (%) 12.6 %PWs0.73 (0.8-1.2cm) M-Mode DIMENSIONS Left Atrium (MM)3.53 (2.5-4.0cm)IVSd0.72 (0.7-1.1cm) Aortic Root3.47 (2.2-3.7cm)LVDd6.23 (4.0-5.6cm) Aortic Cusp Exc.1.82 (1.5-2.0cm)PWd0.80 (0.7-1.1cm) IVSs1.16 cmFS (%) 24 % LVDs4.74 (2.0-3.8cm)PWs0.97 cm Aortic Valve AoV Peak Dkdsbnve334.8cm/sAoV VTI24.0cmAO Peak GR.8mmHg LVOT Peak Rqkvrwue139.3cm/sLVOT VTI17.83cmAO Mean GR.4mmHg YONNY (VMAX)1.90wb1HWX (VTI)1.57cm2 Mitral Valve MV E Mmnwhumi19.2cm/sMV DECEL [id number] A Sgwoakmi12.0cm/s MV UUL84auC/A ratio0.9MVA (PHT)3.36cm2 TDI Lateral E' Peak V12.87cm/sMedial E' Peak V7.82cm/sE/Lateral E'6.7 E/Medial E'11.0 Tricuspid Valve TR Peak Tmwflgsz656qp/sRAP [id number] Peak Gr.40mmHg [id number] LEFT VENTRICLE The left ventricle is normal size. There is normal left ventricular wall thickness. The left ventricular systolic function is normal. The estimated ejection fraction is 55-60% There is mild basal inferior wall hypokinesis. Transmitral Doppler flow pattern is Grade I-abnormal relaxation pattern. No left ventricle thrombus noted on this study. There is no ventricular septal defect visualized. There is no left ventricular aneurysm. There is no mass noted in the left ventricle. RIGHT VENTRICLE The right ventricle is normal size. There is normal right ventricular wall thickness. The right ventricular systolic function is normal. ATRIA The left atrium is mildly dilated. The right atrium size is normal. The interatrial septum is intact with no evidence for an atrial septal defect. AORTIC VALVE The aortic valve is normal in structure. Trace aortic regurgitation is present. There is no aortic valvular stenosis. There is no aortic valvular vegetation. MITRAL VALVE The mitral valve is normal in structure. There is no evidence of mitral valve prolapse. There is no mitral valve stenosis. There is moderate, eccentric mitral valve regurgitation noted. TRICUSPID VALVE The tricuspid valve is normal in structure. There is moderate to severe tricuspid valve regurgitation noted. RVSP is calculated at 46 mm Hg, consistent with mild pulmonary HTN. There is no tricuspid valve prolapse or vegetation. There is no tricuspid valve stenosis. PULMONIC VALVE The pulmonary valve is normal in structure. There is mild pulmonic valvular regurgitation. There is no pulmonic valvular stenosis. GREAT VESSELS The aortic root is normal in size. The ascending aorta is normal in size. The pulmonary artery is normal. The IVC is normal in size and collapses >50% with inspiration. PERICARDIAL EFFUSION There is no pericardial effusion. There is no pleural effusion. <Conclusion> The left ventricular systolic function is normal. The estimated ejection fraction is 55%. There is mild basal inferior wall hypokinesis. Transmitral Doppler flow pattern is Grade I-abnormal relaxation pattern. The left atrium is mildly dilated. There is moderate, eccentric mitral valve regurgitation noted. There is moderate to severe tricuspid valve regurgitation noted. RVSP is calculated at 46 mm Hg, consistent with mild pulmonary HTN.
[2018-08-03 05:54] LABS: HEMOGLOBIN 7.9 g/dL (12.0-18.0); MEAN CELL VOLUME 92.7 fl (80.0-94.0); MEAN CORPUSCULAR HEMOGLOBIN 30.1 pg (27.0-31.0); MEAN CORPUSCULAR HGB CONC 32.5 g/dL (33.0-37.0); RBC 2.64 Mil/uL (4.40-5.90); RED CELL DISTRIBUTION WIDTH 21.1 % (11.5-14.5); WHITE BLOOD COUNT 8.4 K/uL (4.8-10.8)
--- NOTE | 2018-08-03 07:07 | CP.PCM.PN ---
Subjective - Date & Time of Evaluation Date of Evaluation: 08/03/18 Time of Evaluation: 07:07 Objective - Vital Signs/Intake and Output Vital Signs (last 24 hours): Temp Pulse Resp BP Pulse Ox 98.3 F 77 18 115/56 L 100 08/03/18 05:00 08/03/18 05:00 08/03/18 05:00 08/03/18 05:00 08/03/18 05:00 - Medications Medications: Current Medications Albuterol Sulfate (Albuterol 0.083% Inhal Mayte (2.5 Mg/3 Ml) Ud) 2.5 mg INH Q15MIN [facility] Stop: 08/06/18 17:16 Allopurinol (Zyloprim) 100 mg PO DAILY [facility] Last Admin: 08/02/18 09:05 Dose: Not Given Amlodipine Besylate (Norvasc) 5 mg PO DAILY [facility] Last Admin: 08/02/18 09:05 Dose: Not Given Calcitriol (Rocaltrol) 1 mcg PO DAILY [facility] Last Admin: 08/02/18 09:05 Dose: Not Given Carvedilol (Coreg) 6.25 mg PO Q12 [facility] Last Admin: 08/02/18 21:45 Dose: 6.25 mg Donepezil HCl (Aricept) 10 mg PO HS [facility] Last Admin: 08/02/18 21:45 Dose: 10 mg Heparin Sodium (Porcine) (Heparin) 5,000 units SC Q8 [facility]; Protocol Last Admin: 08/03/18 01:08 Dose: 5,000 units Ceftriaxone Sodium 1 gm/ (Sodium Chloride) 100 mls @ 100 mls/hr IVPB DAILY [facility]; Protocol Last Admin: 08/02/18 09:02 Dose: 100 mls/hr Azithromycin 500 mg/ Sodium (Chloride) 250 mls @ 250 mls/hr IVPB DAILY [facility]; Protocol Last Admin: 08/02/18 09:03 Dose: 250 mls/hr Lorazepam (Ativan) 0.5 mg IM Q6 PRN PRN Reason: Agitation Memantine (Namenda) 5 mg PO Q12 [facility] Last Admin: 08/02/18 21:45 Dose: 5 mg Pantoprazole Sodium (Protonix Ec Tab) 40 mg PO DAILY [facility] Last Admin: 08/02/18 09:05 Dose: Not Given Fluticasone/Salmeterol (Advair Diskus 250/50) 1 puff IH Q12 [facility] Last Admin: 08/02/18 21:44 Dose: 1 puff Tamsulosin HCl (Flomax) 0.4 mg PO DAILY [facility] Last Admin: 08/02/18 09:04 Dose: Not Given Vitamin B Complex/Vit C/Folic Acid (Nephro-Jules) 1 tab PO DAILY [facility] Last Admin: 08/02/18 09:04 Dose: Not Given - Labs Labs: 08/03/18 05:25 08/02/18 04:48
[2018-08-03 07:25] LABS: ALB/GLOB RATIO 0.9 (1.0-2.1); ALBUMIN 2.7 g/dL (3.5-5.0); CALCIUM 8.8 mg/dL (8.4-10.2)
[2018-08-03] MEDS: Pantoprazole 40 mg EC Tab PO SCH (09:07)
[2018-08-03] MEDS: Multivitamin Vitamin B Complex (Nephro-Vite) Tab PO SCH (09:08)
[2018-08-03] MEDS: Fluticasone-Salmeterol 250-50mcg Diskus IH SCH ×2 (09:08→21:00)
[2018-08-03] MEDS: Azithromycin 500 MG in Sodium Chloride 0.9% 250 ML IVPB SCH (09:12)
--- NOTE | 2018-08-03 11:37 | CP.PCM.PN ---
Subjective - Date & Time of Evaluation Date of Evaluation: 08/03/18 Time of Evaluation: 11:03 - Subjective Subjective: renal follow up note no events overnight vss heent normal op moist no jvd [id number] no resp distress abd soft asleep opens eyes to name End-stage renal disease HD [facility] Left foot ulcer Hypertension Pneumonia Hyperphosphatemia notes, added renvela tid Altered mental status with Alzheimer and dementia Possibly peripheral vascular disease? Objective - Vital Signs/Intake and Output Vital Signs (last 24 hours): Temp Pulse Resp BP Pulse Ox 97.3 F L 75 20 124/44 L 93 L 08/03/18 07:59 08/03/18 09:05 08/03/18 07:59 08/03/18 09:05 08/03/18 07:59 - Medications Medications: Current Medications Albuterol Sulfate (Albuterol 0.083% Inhal Mayte (2.5 Mg/3 Ml) Ud) 2.5 mg INH Q15MIN [facility] Stop: 08/06/18 17:16 Allopurinol (Zyloprim) 100 mg PO DAILY [facility] Last Admin: 08/03/18 09:08 Dose: 100 mg Amlodipine Besylate (Norvasc) 5 mg PO DAILY [facility] Last Admin: 08/02/18 09:05 Dose: Not Given Calcitriol (Rocaltrol) 1 mcg PO DAILY [facility] Last Admin: 08/03/18 09:07 Dose: 1 mcg Carvedilol (Coreg) 6.25 mg PO Q12 [facility] Last Admin: 08/03/18 09:05 Dose: 6.25 mg Donepezil HCl (Aricept) 10 mg PO HS [facility] Last Admin: 08/02/18 21:45 Dose: 10 mg Heparin Sodium (Porcine) (Heparin) 5,000 units SC Q8 [facility]; Protocol Last Admin: 08/03/18 09:21 Dose: Not Given Ceftriaxone Sodium 1 gm/ (Sodium Chloride) 100 mls @ 100 mls/hr IVPB DAILY [facility]; Protocol Last Admin: 08/03/18 09:09 Dose: 100 mls/hr Azithromycin 500 mg/ Sodium (Chloride) 250 mls @ 250 mls/hr IVPB DAILY [facility]; Protocol Last Admin: 08/03/18 09:12 Dose: 250 mls/hr Lorazepam (Ativan) 0.5 mg IM Q6 PRN PRN Reason: Agitation Memantine (Namenda) 5 mg PO Q12 [facility] Last Admin: 08/03/18 09:07 Dose: 5 mg Pantoprazole Sodium (Protonix Ec Tab) 40 mg PO DAILY [facility] Last Admin: 08/03/18 09:07 Dose: 40 mg Fluticasone/Salmeterol (Advair Diskus 250/50) 1 puff IH Q12 [facility] Last Admin: 08/03/18 09:08 Dose: 1 puff Tamsulosin HCl (Flomax) 0.4 mg PO DAILY [facility] Last Admin: 08/03/18 09:06 Dose: 0.4 mg Vitamin B Complex/Vit C/Folic Acid (Nephro-Jules) 1 tab PO DAILY [facility] Last Admin: 08/03/18 09:08 Dose: 1 tab - Labs Labs: 08/03/18 05:25 08/03/18 05:25
--- NOTE | 2018-08-03 18:03 | NM ---
Date of service: 08/03/2018 PROCEDURE: Three-phase bone scan HISTORY: L hallux gangrene COMPARISON: 08/01/2018 left foot radiographs TECHNIQUE: Following administration of 22.6 miCu of Tc MDP three-phase bone scan was performed with attention directed to the left lower extremity FINDINGS: Flow component: Increase flow to the left lower extremity compared to the right Blood pool component: Accumulation radionuclide in the right lower extremity exceeds that in the left. Delayed images at 3:00: No focal abnormalities. Other findings: None. IMPRESSION: No evidence of acute osseous process. Findings likely represent cellulitis right lower extremity.
[2018-08-04 06:10] LABS: HEMOGLOBIN 8.7 g/dL (12.0-18.0); MEAN CELL VOLUME 90.3 fl (80.0-94.0); MEAN CORPUSCULAR HEMOGLOBIN 29.6 pg (27.0-31.0); MEAN CORPUSCULAR HGB CONC 32.7 g/dL (33.0-37.0); RBC 2.92 Mil/uL (4.40-5.90); RED CELL DISTRIBUTION WIDTH 20.7 % (11.5-14.5); WHITE BLOOD COUNT 8.4 K/uL (4.8-10.8)
[2018-08-04] MEDS: Azithromycin 500 MG in Sodium Chloride 0.9% 250 ML IVPB SCH (10:16)
[2018-08-04] MEDS: Fluticasone-Salmeterol 250-50mcg Diskus IH SCH ×2 (10:18→21:19)
[2018-08-04] MEDS: Multivitamin Vitamin B Complex (Nephro-Vite) Tab PO SCH (10:21)
[2018-08-04] MEDS: Pantoprazole 40 mg EC Tab PO SCH (10:23)
--- NOTE | 2018-08-04 12:02 | CP.PCM.PN ---
Subjective - Date & Time of Evaluation Date of Evaluation: 08/04/18 Time of Evaluation: 12:00 - Subjective Subjective: Podiatry Consult Note: Dr. Garcia 82 year old male patient seen and evaluated at bedside for L lower extremity ulcerations. Patient resting comfortably and in NAD. He states that he is doing better than yesterday. Denies N/V/F. Objective - Vital Signs/Intake and Output Vital Signs (last 24 hours): Temp Pulse Resp BP Pulse Ox 97.7 F 78 20 138/66 98 08/04/18 09:06 08/04/18 10:23 08/04/18 09:06 08/04/18 10:23 08/04/18 09:06 - Medications Medications: Current Medications Albuterol Sulfate (Albuterol 0.083% Inhal Mayte (2.5 Mg/3 Ml) Ud) 2.5 mg INH Q15MIN [facility] Stop: 08/06/18 17:16 Allopurinol (Zyloprim) 100 mg PO DAILY [facility] Last Admin: 08/04/18 10:25 Dose: 100 mg Amlodipine Besylate (Norvasc) 5 mg PO DAILY [facility] Last Admin: 08/04/18 10:23 Dose: 5 mg Calcitriol (Rocaltrol) 1 mcg PO DAILY [facility] Last Admin: 08/04/18 10:24 Dose: 1 mcg Carvedilol (Coreg) 6.25 mg PO Q12 [facility] Last Admin: 08/04/18 10:22 Dose: 6.25 mg Donepezil HCl (Aricept) 10 mg PO HS [facility] Last Admin: 08/03/18 22:56 Dose: 10 mg Heparin Sodium (Porcine) (Heparin) 5,000 units SC Q8 [facility]; Protocol Last Admin: 08/04/18 10:21 Dose: 5,000 units Ceftriaxone Sodium 1 gm/ (Sodium Chloride) 100 mls @ 100 mls/hr IVPB DAILY [facility]; Protocol Last Admin: 08/04/18 10:15 Dose: 100 mls/hr Azithromycin 500 mg/ Sodium (Chloride) 250 mls @ 250 mls/hr IVPB DAILY [facility]; Protocol Last Admin: 08/04/18 10:16 Dose: 250 mls/hr Lorazepam (Ativan) 0.5 mg IM Q6 PRN PRN Reason: Agitation Memantine (Namenda) 5 mg PO Q12 [facility] Last Admin: 08/04/18 10:21 Dose: 5 mg Pantoprazole Sodium (Protonix Ec Tab) 40 mg PO DAILY [facility] Last Admin: 08/04/18 10:23 Dose: 40 mg Fluticasone/Salmeterol (Advair Diskus 250/50) 1 puff IH Q12 [facility] Last Admin: 08/04/18 10:18 Dose: 1 puff Sevelamer Carbonate (Renvela) 2,400 mg PO TID [facility] Last Admin: 08/04/18 10:19 Dose: 2,400 mg Tamsulosin HCl (Flomax) 0.4 mg PO DAILY [facility] Last Admin: 08/04/18 10:23 Dose: 0.4 mg Vitamin B Complex/Vit C/Folic Acid (Nephro-Jules) 1 tab PO DAILY [facility] Last Admin: 08/04/18 10:21 Dose: 1 tab - Labs Labs: 08/04/18 04:30 08/03/18 05:25 - Constitutional Appears: Well, Non-toxic, No Acute Distress - Head Exam Head Exam: ATRAUMATIC, NORMOCEPHALIC - Extremities Exam Additional comments: B/L lower extremity focused exam: Vasc: DP/PT 1/4, CFT > 3 seconds, TG warm to warm, no pedal edema present Ortho: Pain with palpation of feet bilaterally, Hammertoe deformity 2-5 bilaterally with crossover deformity of 2nd digit, HAV deformity bilaterally, no pain with calf compression Neuro: Gross sensation intact, unable to assess protective sensation secondary to patient's mental status Derm: LLE: DTI to left heel secondary to pressure, Superficial ulceration secondary to skin breakdown, measuring approximately 3.0x1.0x.1cm,with 100% granular base, no drainage, no purulence, no erythema, no clinical signs of infection noted. Necrotic distal tip of the hallux with color changes, no drainage, no purulence, no erythema. Friable, xerotic skin noted to b/l lower extremities. Elongated, dystrophic nails x10. Interdigital maceration to all webspaces. - Neurological Exam Neurological Exam: Alert, Awake, Oriented x3 - Psychiatric Exam Psychiatric exam: Normal Affect, Normal Mood Assessment and Plan - Assessment and Plan (Free Text) Assessment: 82 year old male patient seen and evaluated at bedside for L posterior ankle superficial ulceration and necrotic distal tip of hallux Plan: Patient seen and evaluated Discussed patient in detail with Dr. Garcia Afebrile, absent leukocytosis Foot x-rays ordered: No fracture or dislocation. Pes planus bilaterally, no deg enerative changes Bone Scan: no evidence of acute OM, likely cellultis of the RLE Local wound care to LLE: betadine, DSD Multipodus boots ordered; to be worn at all times while in bed Will continue to follow
--- NOTE | 2018-08-04 14:02 | CP.PCM.PN ---
Subjective - Date & Time of Evaluation Date of Evaluation: 08/04/18 Time of Evaluation: 14:00 - Subjective Subjective: Patient is stable Has no fever Has fair appetite. Hgb 8.7 Has nasal congestion. Objective - Vital Signs/Intake and Output Vital Signs (last 24 hours): Temp Pulse Resp BP Pulse Ox 98.3 F 76 20 91/51 L 99 08/04/18 13:54 08/04/18 13:54 08/04/18 13:54 08/04/18 13:54 08/04/18 13:54 - Medications Medications: Current Medications Albuterol Sulfate (Albuterol 0.083% Inhal Mayte (2.5 Mg/3 Ml) Ud) 2.5 mg INH Q15MIN [facility] Stop: 08/06/18 17:16 Allopurinol (Zyloprim) 100 mg PO DAILY [facility] Last Admin: 08/04/18 10:25 Dose: 100 mg Amlodipine Besylate (Norvasc) 5 mg PO DAILY [facility] Last Admin: 08/04/18 10:23 Dose: 5 mg Calcitriol (Rocaltrol) 1 mcg PO DAILY [facility] Last Admin: 08/04/18 10:24 Dose: 1 mcg Carvedilol (Coreg) 6.25 mg PO Q12 [facility] Last Admin: 08/04/18 10:22 Dose: 6.25 mg Donepezil HCl (Aricept) 10 mg PO HS [facility] Last Admin: 08/03/18 22:56 Dose: 10 mg Heparin Sodium (Porcine) (Heparin) 5,000 units SC Q8 [facility]; Protocol Last Admin: 08/04/18 10:21 Dose: 5,000 units Ceftriaxone Sodium 1 gm/ (Sodium Chloride) 100 mls @ 100 mls/hr IVPB DAILY [facility]; Protocol Last Admin: 08/04/18 10:15 Dose: 100 mls/hr Azithromycin 500 mg/ Sodium (Chloride) 250 mls @ 250 mls/hr IVPB DAILY [facility]; Protocol Last Admin: 08/04/18 10:16 Dose: 250 mls/hr Lorazepam (Ativan) 0.5 mg IM Q6 PRN PRN Reason: Agitation Memantine (Namenda) 5 mg PO Q12 [facility] Last Admin: 08/04/18 10:21 Dose: 5 mg Pantoprazole Sodium (Protonix Ec Tab) 40 mg PO DAILY [facility] Last Admin: 08/04/18 10:23 Dose: 40 mg Fluticasone/Salmeterol (Advair Diskus 250/50) 1 puff IH Q12 [facility] Last Admin: 08/04/18 10:18 Dose: 1 puff Sevelamer Carbonate (Renvela) 2,400 mg PO TID [facility] Last Admin: 08/04/18 10:19 Dose: 2,400 mg Tamsulosin HCl (Flomax) 0.4 mg PO DAILY [facility] Last Admin: 08/04/18 10:23 Dose: 0.4 mg Vitamin B Complex/Vit C/Folic Acid (Nephro-Jules) 1 tab PO DAILY [facility] Last Admin: 08/04/18 10:21 Dose: 1 tab - Labs Labs: 08/04/18 04:30 08/03/18 05:25 - Head Exam Head Exam: NORMAL INSPECTION - Eye Exam Eye Exam: Normal appearance - ENT Exam ENT Exam: Mucous Membranes Moist - Respiratory Exam Respiratory Exam: Clear to Ausculation Bilateral - Cardiovascular Exam Cardiovascular Exam: REGULAR RHYTHM - GI/Abdominal Exam GI & Abdominal Exam: Normal Bowel Sounds - Neurological Exam Neurological Exam: Awake Assessment and Plan (1) Hyperkalemia Status: Acute (2) Pneumonia Status: Acute (3) Anemia in chronic kidney disease, on chronic dialysis Status: Chronic (4) Hypertension Status: Acute - Assessment and Plan (Free Text) Plan: Cont meds con ttx Co tHD start phys therapy
[2018-08-05] MEDS: Fluticasone-Salmeterol 250-50mcg Diskus IH SCH ×2 (08:37→21:35)
[2018-08-05] MEDS: Multivitamin Vitamin B Complex (Nephro-Vite) Tab PO SCH (08:40)
[2018-08-05] MEDS: Pantoprazole 40 mg EC Tab PO SCH (08:40)
[2018-08-05] MEDS: Azithromycin 500 MG in Sodium Chloride 0.9% 250 ML IVPB SCH (08:44)
[2018-08-05 12:46] LABS: HEMOGLOBIN 8.6 g/dL (12.0-18.0); MEAN CELL VOLUME 91.8 fl (80.0-94.0); MEAN CORPUSCULAR HEMOGLOBIN 29.2 pg (27.0-31.0); MEAN CORPUSCULAR HGB CONC 31.8 g/dL (33.0-37.0); RBC 2.95 Mil/uL (4.40-5.90)
[2018-08-05 12:53] LABS: ALB/GLOB RATIO 0.8 (1.0-2.1); ALBUMIN 2.6 g/dL (3.5-5.0); CALCIUM 8.7 mg/dL (8.4-10.2)
--- NOTE | 2018-08-05 14:57 | CP.PCM.CON ---
History of Present Illness - History of Present Illness History of Present Illness: 82 year old male patient, with PMHx of EDRD, HTN, dementia, seen and evaluated, for L decubitus ulcers. Found to have MDRO form leg wound Possible colonization or contamination ? Per chart reviewed: PMHx: ESRD, HTN, Dementia ALL: NKDA Review of Systems - Review of Systems All systems: reviewed and no additional remarkable complaints except - Constitutional Constitutional: As Per HPI, Malaise - EENT Eyes: absent: As Per HPI, Blind Spots, Blurred Vision, Change in Vision, Decreased Night Vision, Diplopia, Discharge, Dry Eye, Exophthalmos, Floaters, Irritation, Itchy Eyes, Loss of Peripheral Vision, Pain, Photophobia, Requires Corrective Lenses, Sees Flashes, Spots in Vision, Tunnel Vision, Other Visual Disturbances, Loss of Vision, Other Nose/Mouth/Throat: absent: As Per HPI, Epistaxis, Nasal Congestion, Nasal Discharge, Nasal Obstruction, Nasal Trauma, Nose Pain, Post Nasal Drip, Sinus Pain, Sinus Pressure, Bleeding Gums, Change in Voice, Dental Pain, Dry Mouth, Dysphagia, Halitosis, Hoarsness, Lip Swelling, Mouth Lesions, Mouth Pain, Odynophagia, Sore Throat, Throat Swelling, Tongue Swelling, Facial Pain, Neck Pain, Neck Mass, Other - Cardiovascular Cardiovascular: absent: As Per HPI, Acrocyanosis, Chest Pain, Chest Pain at Rest, Chest Pain with Activity, Claudication, Diaphoresis, Dyspnea, Dyspnea on Exertion, Edema, Irregular Heart Rhythm, Pain Radiating to Arm/Neck/Jaw, Leg Edema, Leg Ulcers, Lightheadedness, Orthopnea, Palpitations, Paroxysmal Nocturnal Dyspnea, Pedal Edema, Radiating Pain, Rapid Heart Rate, Slow Heart Rate, Syncope, Other - Respiratory Respiratory: absent: As Per HPI, Cough, Dyspnea, Hemoptysis, Dyspnea on Exertion, Wheezing, Snoring, Stridor, Pain on Inspiration, Chest Congestion, Excessive Mucous Production, Change in Mucous Color, Pain with Coughing, Other - Gastrointestinal Gastrointestinal: absent: As Per HPI, Abdominal Pain, Belching, Bloating, Change in Bowel Habits, Change in Stool Character, Coffee Ground Emesis, Constipation, Cramping, Diarrhea, Dyspepsia, Dysphagia, Early Satiety, Excessive Flatus, Fecal Incontinence, Heartburn, Hematemesis, Hematochezia, Loose Stools, Melena, Nausea, Odynophagia, Temesmus, Vomiting, Other - Genitourinary Genitourinary: absent: As Per HPI, Change in Urinary Stream, Difficulty Urinating, Dysuria, Flank Pain, Hematuria, Pyuria, Nocturia, Urinary Incontinence, Urinary Frequency, Urinary Hesitance, Urinary Urgency, Voiding Freq/Small Amts, Freq UTI, Hx Renal/Bladder Calculi, Hx /Renal Surgery, Blad pj Distension, Other - Musculoskeletal Musculoskeletal: As Per HPI - Integumentary Integumentary: As Per HPI, Skin Pain, Wounds - Neurological Neurological: absent: As Per HPI, Abnormal Gait, Abnormal Hearing, Abnormal Movements, Abnormal Speech, Behavioral Changes, Burning Sensations, Confusion, Convulsions, Disequilibrium, Dizziness, Numbness, Focal Weakness, Frequent Falls, Headaches, Lack of Coordination, Loss of Vision, Memory Loss, Paresthesias, Radicular Pain, Restless Legs, Sensory Deficit, Syncope, Tingling, Tremor, Vertigo, Weakness, Other Visual Disturbances, Other - Psychiatric Psychiatric: absent: As Per HPI, Abnormal Sleep Pattern, Anhedonia, Anxiety, Auditory Hallucinations, Behavioral Changes, Change in Appetite, Change in Libido, Confusion, Depression, Difficulty Concentrating, Hallucinations, Homicidal Ideation, Hopelessness, Irritability, Memory Loss, Mood Swings, Panic Attacks, Paranoia, Suicidal Ideation, Visual Hallucinations, Tactile Hallucinations, Other - Endocrine Endocrine: absent: As Per HPI, Change in Body Appearance, Change in Libido, Cold Intolorance, Deepening of Voice, Excessive Sweating, Fatigue, Flushing, Heat Intolorance, Increase in Ring/Shoe/Hat Size, Palpitations, Polydipsia, Polyphagia, Polyuria, Other - Hematologic/Lymphatic Hematologic: absent: As Per HPI, Easy Bleeding, Easy Bruising, Lymphadenopathy, Other Past Patient History - Past Medical History & Family History Past Medical History?: Yes - Past Social History Alcohol: None Drugs: Denies - CARDIAC Hx Hypertension: Yes - NEUROLOGICAL Hx Dementia: Yes - RENAL Hx Chronic Kidney Disease: Yes Type of Dialysis Access: left AV fistula - ENDOCRINE/METABOLIC Hx Diabetes Mellitus Type 2: Yes - HEMATOLOGICAL/ONCOLOGICAL Hx AIDS: No Hx Human Immunodeficiency Virus (HIV): No - MUSCULOSKELETAL/RHEUMATOLOGICAL Hx Falls: No Hx Spinal Stenosis: Yes - GASTROINTESTINAL Hx Gastrointestinal Disorders: No - PSYCHIATRIC Hx Psychophysiologic Disorder: No Hx Substance Use: No - SURGICAL HISTORY Hx Surgeries: (unable to obtain) - ANESTHESIA Hx Anesthesia: Yes Hx Anesthesia Reactions: No Hx Malignant Hyperthermia: No Has any member of the family had a problem w/ anesthesia?: No Meds Allergies/Adverse Reactions: Allergies Allergy/AdvReac Type Severity Reaction Status Date / Time No Known Allergies Allergy Verified 08/01/18 11:15 - Medications Medications: Current Medications Albuterol Sulfate (Albuterol 0.083% Inhal Mayte (2.5 Mg/3 Ml) Ud) 2.5 mg INH Q15MIN [facility] Stop: 08/06/18 17:16 Allopurinol (Zyloprim) 100 mg PO DAILY [facility] Last Admin: 08/05/18 08:45 Dose: 100 mg Amlodipine Besylate (Norvasc) 5 mg PO DAILY [facility] Last Admin: 08/05/18 08:40 Dose: 5 mg Calcitriol (Rocaltrol) 1 mcg PO DAILY [facility] Last Admin: 08/05/18 08:41 Dose: 1 mcg Carvedilol (Coreg) 6.25 mg PO Q12 [facility] Last Admin: 08/05/18 08:37 Dose: 6.25 mg Donepezil HCl (Aricept) 10 mg PO HS [facility] Last Admin: 08/04/18 21:20 Dose: 10 mg Fluticasone Propionate (Flonase) 1 spr MAN BID [facility] Last Admin: 08/05/18 08:38 Dose: 1 spr Heparin Sodium (Porcine) (Heparin) 5,000 units SC Q8 [facility]; Protocol Last Admin: 08/05/18 08:38 Dose: 5,000 units Ceftriaxone Sodium 1 gm/ (Sodium Chloride) 100 mls @ 100 mls/hr IVPB DAILY [facility]; Protocol Last Admin: 08/05/18 08:42 Dose: 100 mls/hr Azithromycin 500 mg/ Sodium (Chloride) 250 mls @ 250 mls/hr IVPB DAILY [facility]; Protocol Last Admin: 08/05/18 08:44 Dose: 250 mls/hr Memantine (Namenda) 5 mg PO Q12 [facility] Last Admin: 08/05/18 08:39 Dose: 5 mg Pantoprazole Sodium (Protonix Ec Tab) 40 mg PO DAILY [facility] Last Admin: 08/05/18 08:40 Dose: 40 mg Fluticasone/Salmeterol (Advair Diskus 250/50) 1 puff IH Q12 [facility] Last Admin: 08/05/18 08:37 Dose: 1 puff Sevelamer Carbonate (Renvela) 2,400 mg PO TID [facility] Last Admin: 08/05/18 13:50 Dose: 2,400 mg Tamsulosin HCl (Flomax) 0.4 mg PO DAILY [facility] Last Admin: 08/05/18 08:38 Dose: 0.4 mg Vitamin B Complex/Vit C/Folic Acid (Nephro-Jules) 1 tab PO DAILY [facility] Last Admin: 08/05/18 08:40 Dose: 1 tab Physical Exam - Constitutional Appears: Confused, Cachectic, Chronically Ill - Head Exam Head Exam: ATRAUMATIC, NORMAL INSPECTION, NORMOCEPHALIC - Eye Exam Eye Exam: absent: Scleral icterus - ENT Exam ENT Exam: Mucous Membranes Dry, Normal External Ear Exam, Normal Oropharynx - Neck Exam Neck exam: Negative for: Lymphadenopathy, Thyromegaly - Respiratory Exam Respiratory Exam: Decreased Breath Sounds, Prolonged Expiratory Phase, Rhonchi - Cardiovascular Exam Cardiovascular Exam: REGULAR RHYTHM, +S1, +S2 - GI/Abdominal Exam GI & Abdominal Exam: Diminished Bowel Sounds, Distended, Soft. absent: Guarding, Rebound, Rigid, Tenderness - Rectal Exam Rectal Exam: Deferred - Exam Exam: NORMAL INSPECTION - Extremities Exam Extremities exam: Positive for: pedal edema, tenderness. Negative for: calf tenderness, pedal pulses present Additional comments: B/L lower extremity focused exam: Vasc: DP/PT 1/4, CFT > 3 seconds, TG warm to warm, no pedal edema present Ortho: Pain with palpation of feet bilaterally, Hammertoe deformity 2-5 bilaterally with crossover deformity of 2nd digit, HAV deformity bilaterally, no pain with calf compression Neuro: Gross sensation intact, unable to assess protective sensation secondary to patient's mental status Derm: LLE: DTI to left heel secondary to pressure, Superficial ulceration secondary to skin breakdown, measuring approximately 3.0x1.0x.1cm,with 100% granular base, no drainage, no purulence, no erythema, no clinical signs of infection noted. Necrotic distal tip of the hallux with color changes, no drainage, no purulence, no erythema. Friable, xerotic skin noted to b/l lower extremities. Elongated, dystrophic nails x10. Interdigital maceration to all webspaces. - Back Exam Back exam: absent: CVA tenderness (L), CVA tenderness (R), paraspinal tenderness - Neurological Exam Neurological exam: Alert, Altered, CN II-XII Intact, Reflexes Normal - Psychiatric Exam Psychiatric exam: Depressed - Skin Skin Exam: Dry Results - Vital Signs Recent Vital Signs: Last Vital Signs Temp 97.6 F 08/05/18 13:00 Pulse 74 08/05/18 13:00 Resp 20 08/05/18 13:00 BP 93/49 L 08/05/18 13:00 Pulse Ox 100 08/05/18 13:00 - Labs Result Diagrams: 08/05/18 12:35 08/05/18 12:35 Labs: Laboratory Results - last 24 hr 08/04/18 08/04/18 08/04/18 11:43 15:50 21:18 WBC RBC Hgb Hct MCV MCH MCHC RDW Plt Count Sodium Potassium Chloride Carbon Dioxide Anion Gap BUN Creatinine Est GFR ( Amer) Est GFR (Non-Af Amer) POC Glucose (mg/dL) 132 H 97 105 Random Glucose Calcium Total Bilirubin AST ALT Alkaline Phosphatase Total Protein Albumin Globulin Albumin/Globulin Ratio 08/05/18 08/05/18 08/05/18 05:48 11:02 12:35 WBC 10.0 RBC 2.95 L Hgb 8.6 L Hct 27.1 L MCV 91.8 MCH 29.2 MCHC 31.8 L RDW 20.0 H Plt Count 190 Sodium Potassium Chloride Carbon Dioxide Anion Gap BUN Creatinine Est GFR ( Amer) Est GFR (Non-Af Amer) POC Glucose (mg/dL) 99 166 H Random Glucose Calcium Total Bilirubin AST ALT Alkaline Phosphatase Total Protein Albumin Globulin Albumin/Globulin Ratio 08/05/18 12:35 WBC RBC Hgb Hct MCV MCH MCHC RDW Plt Count Sodium 133 Potassium 4.8 Chloride 95 L Carbon Dioxide 30 Anion Gap 13 BUN 60 H Creatinine 6.1 H Est GFR ( Amer) 11 Est GFR (Non-Af Amer) 9 POC Glucose (mg/dL) Random Glucose 115 H Calcium 8.7 Total Bilirubin 0.2 AST 99 H ALT 33 Alkaline Phosphatase 66 Total Protein 5.6 L Albumin 2.6 L Globulin 3.1 Albumin/Globulin Ratio 0.8 L Assessment & Plan (1) Pneumonia Status: Acute (2) Anemia in chronic kidney disease, on chronic dialysis Status: Chronic (3) End stage renal disease Status: Chronic - Assessment and Plan (Free Text) Assessment: severe cellulitis/stasis dermatitis of lower extrem JASSIO stephanieley represents colonization and or contamination would place on contact isolation cont local wound care and antibiotics if condition worsens may need to consider IV Tigecyl
[2018-08-05] MEDS ORDERED: Sodium Chloride 3% for Inhalation 4 ML VIAL.NEB IH PRN (15:01)
--- NOTE | 2018-08-05 17:11 | CP.PCM.PN ---
Subjective - Date & Time of Evaluation Date of Evaluation: 08/05/18 Time of Evaluation: 17:10 - Subjective Subjective: renal follow up note no events overnight vss heent normal op moist no jvd [id number] no resp distress abd soft asleep opens eyes to name End-stage renal disease HD [facility] Left foot ulcer Hypertension Pneumonia Hyperphosphatemia notes, added renvela tid Altered mental status with Alzheimer and dementia Possibly peripheral vascular disease continue dialysis per schedule bp ok volume stable lytes reviewed anemia monitor epo as needed with hd Objective - Vital Signs/Intake and Output Vital Signs (last 24 hours): Temp Pulse Resp BP Pulse Ox 97.5 F L 80 18 159/74 H 95 08/05/18 16:05 08/05/18 16:05 08/05/18 16:05 08/05/18 16:05 08/05/18 16:05 - Medications Medications: Current Medications Albuterol Sulfate (Albuterol 0.083% Inhal Mayte (2.5 Mg/3 Ml) Ud) 2.5 mg INH Q15MIN [facility] Stop: 08/06/18 17:16 Allopurinol (Zyloprim) 100 mg PO DAILY [facility] Last Admin: 08/05/18 08:45 Dose: 100 mg Amlodipine Besylate (Norvasc) 5 mg PO DAILY [facility] Last Admin: 08/05/18 08:40 Dose: 5 mg Calcitriol (Rocaltrol) 1 mcg PO DAILY [facility] Last Admin: 08/05/18 08:41 Dose: 1 mcg Carvedilol (Coreg) 6.25 mg PO Q12 [facility] Last Admin: 08/05/18 08:37 Dose: 6.25 mg Donepezil HCl (Aricept) 10 mg PO HS [facility] Last Admin: 08/04/18 21:20 Dose: 10 mg Fluticasone Propionate (Flonase) 1 spr MAN BID [facility] Last Admin: 08/05/18 16:30 Dose: 1 spr Heparin Sodium (Porcine) (Heparin) 5,000 units SC Q8 [facility]; Protocol Last Admin: 08/05/18 16:26 Dose: 5,000 units Ceftriaxone Sodium 1 gm/ (Sodium Chloride) 100 mls @ 100 mls/hr IVPB DAILY [facility]; Protocol Last Admin: 08/05/18 08:42 Dose: 100 mls/hr Azithromycin 500 mg/ Sodium (Chloride) 250 mls @ 250 mls/hr IVPB DAILY [facility]; Protocol Last Admin: 08/05/18 08:44 Dose: 250 mls/hr Memantine (Namenda) 5 mg PO Q12 [facility] Last Admin: 08/05/18 08:39 Dose: 5 mg Pantoprazole Sodium (Protonix Ec Tab) 40 mg PO DAILY [facility] Last Admin: 08/05/18 08:40 Dose: 40 mg Fluticasone/Salmeterol (Advair Diskus 250/50) 1 puff IH Q12 [facility] Last Admin: 08/05/18 08:37 Dose: 1 puff Sevelamer Carbonate (Renvela) 2,400 mg PO TID [facility] Last Admin: 08/05/18 16:28 Dose: 2,400 mg Tamsulosin HCl (Flomax) 0.4 mg PO DAILY [facility] Last Admin: 08/05/18 08:38 Dose: 0.4 mg Vitamin B Complex/Vit C/Folic Acid (Nephro-Jules) 1 tab PO DAILY [facility] Last Admin: 08/05/18 08:40 Dose: 1 tab - Labs Labs: 08/05/18 12:35 08/05/18 12:35
--- NOTE | 2018-08-05 21:53 | CP.PCM.PN ---
Subjective - Date & Time of Evaluation Date of Evaluation: 08/05/18 Time of Evaluation: 14:00 - Subjective Subjective: Patient stays mostly in bed. Noted to have foul smelling wound on the buttock/sacral area. Has no fever. WBC is normal. Currently on Zithromax and Rocephin. Wound culture noted to be positive for Acinetobacter and corynebacterium Objective - Vital Signs/Intake and Output Vital Signs (last 24 hours): Temp Pulse Resp BP Pulse Ox 97.8 F 85 16 146/73 95 08/05/18 19:45 08/05/18 21:35 08/05/18 19:45 08/05/18 21:35 08/05/18 19:45 - Medications Medications: Current Medications Albuterol Sulfate (Albuterol 0.083% Inhal Mayte (2.5 Mg/3 Ml) Ud) 2.5 mg INH Q15MIN [facility] Stop: 08/06/18 17:16 Allopurinol (Zyloprim) 100 mg PO DAILY [facility] Last Admin: 08/05/18 08:45 Dose: 100 mg Amlodipine Besylate (Norvasc) 5 mg PO DAILY [facility] Last Admin: 08/05/18 08:40 Dose: 5 mg Calcitriol (Rocaltrol) 1 mcg PO DAILY [facility] Last Admin: 08/05/18 08:41 Dose: 1 mcg Carvedilol (Coreg) 6.25 mg PO Q12 [facility] Last Admin: 08/05/18 21:35 Dose: 6.25 mg Donepezil HCl (Aricept) 10 mg PO HS [facility] Last Admin: 08/05/18 21:35 Dose: 10 mg Fluticasone Propionate (Flonase) 1 spr MAN BID [facility] Last Admin: 08/05/18 16:30 Dose: 1 spr Heparin Sodium (Porcine) (Heparin) 5,000 units SC Q8 [facility]; Protocol Last Admin: 08/05/18 16:26 Dose: 5,000 units Ceftriaxone Sodium 1 gm/ (Sodium Chloride) 100 mls @ 100 mls/hr IVPB DAILY [facility]; Protocol Last Admin: 08/05/18 08:42 Dose: 100 mls/hr Azithromycin 500 mg/ Sodium (Chloride) 250 mls @ 250 mls/hr IVPB DAILY [facility]; Protocol Last Admin: 08/05/18 08:44 Dose: 250 mls/hr Memantine (Namenda) 5 mg PO Q12 [facility] Last Admin: 08/05/18 21:36 Dose: 5 mg Pantoprazole Sodium (Protonix Ec Tab) 40 mg PO DAILY [facility] Last Admin: 08/05/18 08:40 Dose: 40 mg Fluticasone/Salmeterol (Advair Diskus 250/50) 1 puff IH Q12 [facility] Last Admin: 08/05/18 21:35 Dose: 1 puff Sevelamer Carbonate (Renvela) 2,400 mg PO TID [facility] Last Admin: 08/05/18 16:28 Dose: 2,400 mg Tamsulosin HCl (Flomax) 0.4 mg PO DAILY [facility] Last Admin: 08/05/18 08:38 Dose: 0.4 mg Vitamin B Complex/Vit C/Folic Acid (Nephro-Jules) 1 tab PO DAILY [facility] Last Admin: 08/05/18 08:40 Dose: 1 tab - Labs Labs: 08/05/18 12:35 08/05/18 12:35 - Head Exam Head Exam: NORMAL INSPECTION - Eye Exam Eye Exam: Normal appearance - ENT Exam ENT Exam: Mucous Membranes Moist - Respiratory Exam Respiratory Exam: Clear to Ausculation Bilateral - Cardiovascular Exam Cardiovascular Exam: REGULAR RHYTHM - GI/Abdominal Exam GI & Abdominal Exam: Normal Bowel Sounds - Neurological Exam Neurological Exam: Altered, Awake - Skin Additional comments: ulcerated wound in the perineal area erythematous rash on the buttocks area Assessment and Plan (1) Hyperkalemia Status: Acute (2) Pneumonia Status: Acute (3) Anemia in chronic kidney disease, on chronic dialysis Status: Chronic (4) Hypertension Status: Acute - Assessment and Plan (Free Text) Plan: Cont meds Cont tx Discussed with DR Sanabria Will keep iv antibiotics isolation
--- NOTE | 2018-08-05 22:02 | CP.PCM.PN ---
Subjective - Date & Time of Evaluation Date of Evaluation: 08/03/18 Time of Evaluation: 11:00 - Subjective Subjective: Patient remains stable Has no fever WBC is now normal Stays mostly in bed in almost contracted position. Objective - Vital Signs/Intake and Output Vital Signs (last 24 hours): Temp Pulse Resp BP Pulse Ox 97.8 F 85 16 146/73 95 08/05/18 19:45 08/05/18 21:35 08/05/18 19:45 08/05/18 21:35 08/05/18 19:45 - Medications Medications: Current Medications Albuterol Sulfate (Albuterol 0.083% Inhal Mayte (2.5 Mg/3 Ml) Ud) 2.5 mg INH Q15MIN [facility] Stop: 08/06/18 17:16 Allopurinol (Zyloprim) 100 mg PO DAILY [facility] Last Admin: 08/05/18 08:45 Dose: 100 mg Amlodipine Besylate (Norvasc) 5 mg PO DAILY [facility] Last Admin: 08/05/18 08:40 Dose: 5 mg Calcitriol (Rocaltrol) 1 mcg PO DAILY [facility] Last Admin: 08/05/18 08:41 Dose: 1 mcg Carvedilol (Coreg) 6.25 mg PO Q12 [facility] Last Admin: 08/05/18 21:35 Dose: 6.25 mg Donepezil HCl (Aricept) 10 mg PO HS [facility] Last Admin: 08/05/18 21:35 Dose: 10 mg Fluticasone Propionate (Flonase) 1 spr MAN BID [facility] Last Admin: 08/05/18 16:30 Dose: 1 spr Heparin Sodium (Porcine) (Heparin) 5,000 units SC Q8 [facility]; Protocol Last Admin: 08/05/18 16:26 Dose: 5,000 units Ceftriaxone Sodium 1 gm/ (Sodium Chloride) 100 mls @ 100 mls/hr IVPB DAILY [facility]; Protocol Last Admin: 08/05/18 08:42 Dose: 100 mls/hr Azithromycin 500 mg/ Sodium (Chloride) 250 mls @ 250 mls/hr IVPB DAILY [facility]; Protocol Last Admin: 08/05/18 08:44 Dose: 250 mls/hr Memantine (Namenda) 5 mg PO Q12 [facility] Last Admin: 08/05/18 21:36 Dose: 5 mg Pantoprazole Sodium (Protonix Ec Tab) 40 mg PO DAILY [facility] Last Admin: 08/05/18 08:40 Dose: 40 mg Fluticasone/Salmeterol (Advair Diskus 250/50) 1 puff IH Q12 [facility] Last Admin: 08/05/18 21:35 Dose: 1 puff Sevelamer Carbonate (Renvela) 2,400 mg PO TID [facility] Last Admin: 08/05/18 16:28 Dose: 2,400 mg Tamsulosin HCl (Flomax) 0.4 mg PO DAILY [facility] Last Admin: 08/05/18 08:38 Dose: 0.4 mg Vitamin B Complex/Vit C/Folic Acid (Nephro-Jules) 1 tab PO DAILY [facility] Last Admin: 08/05/18 08:40 Dose: 1 tab - Labs Labs: 08/05/18 12:35 08/05/18 12:35 - Head Exam Head Exam: NORMAL INSPECTION - Respiratory Exam Respiratory Exam: Clear to Ausculation Bilateral - Cardiovascular Exam Cardiovascular Exam: REGULAR RHYTHM - GI/Abdominal Exam GI & Abdominal Exam: Normal Bowel Sounds - Neurological Exam Neurological Exam: Awake, Oriented x3 - Psychiatric Exam Psychiatric exam: Normal Mood Assessment and Plan (1) Hyperkalemia Status: Acute (2) Pneumonia Status: Acute (3) Anemia in chronic kidney disease, on chronic dialysis Status: Chronic (4) Hypertension Status: Acute - Assessment and Plan (Free Text) Plan: Cont meds Cont tx Wound care cont iv antibiotics
[2018-08-06 05:44] LABS: BASO # 0.3 K/uL (0.0-0.2); BASO % 3.1 % (0.0-2.0); EOS % 0.2 % (0.0-4.0); HEMOGLOBIN 10.4 g/dL (12.0-18.0); LYMPH # 0.5 K/uL (1.0-4.3); LYMPH % 5.1 % (20.0-40.0); MEAN CELL VOLUME 89.4 fl (80.0-94.0); MEAN CORPUSCULAR HEMOGLOBIN 29.2 pg (27.0-31.0); MEAN CORPUSCULAR HGB CONC 32.7 g/dL (33.0-37.0); MEAN PLATELET VOLUME 8.2 fl (7.2-11.7); MONO # 0.6 K/uL (0.0-0.8); MONO % 6.3 % (0.0-10.0); NEUT % 85.3 % (50.0-75.0); PLATELET COUNT 217 K/uL (130-400); RBC 3.55 Mil/uL (4.40-5.90); WHITE BLOOD COUNT 9.3 K/uL (4.8-10.8)
[2018-08-06 06:06] LABS: ALB/GLOB RATIO 0.9 (1.0-2.1); ALBUMIN 2.9 g/dL (3.5-5.0); CALCIUM 9.3 mg/dL (8.4-10.2)
--- NOTE | 2018-08-06 06:34 | CP.PCM.PN ---
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 Patient resting comfortably and in NAD. Patient denying foot evaluation and dressing change at this time stating, "his stomach hurts and he doesn't feel well today". Denies N/V/F. Objective - Vital Signs/Intake and Output Vital Signs (last 24 hours): Temp Pulse Resp BP Pulse Ox 97.7 F 83 18 116/61 96 08/06/18 05:00 08/06/18 05:00 08/06/18 05:00 08/06/18 05:00 08/06/18 05:00 - Medications Medications: Current Medications Albuterol Sulfate (Albuterol 0.083% Inhal Mayte (2.5 Mg/3 Ml) Ud) 2.5 mg INH Q15MIN [facility] Stop: 08/06/18 17:16 Allopurinol (Zyloprim) 100 mg PO DAILY [facility] Last Admin: 08/05/18 08:45 Dose: 100 mg Amlodipine Besylate (Norvasc) 5 mg PO DAILY [facility] Last Admin: 08/05/18 08:40 Dose: 5 mg Calcitriol (Rocaltrol) 1 mcg PO DAILY [facility] Last Admin: 08/05/18 08:41 Dose: 1 mcg Carvedilol (Coreg) 6.25 mg PO Q12 [facility] Last Admin: 08/05/18 21:35 Dose: 6.25 mg Donepezil HCl (Aricept) 10 mg PO HS [facility] Last Admin: 08/05/18 21:35 Dose: 10 mg Fluticasone Propionate (Flonase) 1 spr MAN BID [facility] Last Admin: 08/05/18 16:30 Dose: 1 spr Heparin Sodium (Porcine) (Heparin) 5,000 units SC Q8 [facility]; Protocol Last Admin: 08/06/18 00:46 Dose: 5,000 units Ceftriaxone Sodium 1 gm/ (Sodium Chloride) 100 mls @ 100 mls/hr IVPB DAILY [facility]; Protocol Last Admin: 08/05/18 08:42 Dose: 100 mls/hr Azithromycin 500 mg/ Sodium (Chloride) 250 mls @ 250 mls/hr IVPB DAILY [facility]; Protocol Last Admin: 08/05/18 08:44 Dose: 250 mls/hr Memantine (Namenda) 5 mg PO Q12 [facility] Last Admin: 08/05/18 21:36 Dose: 5 mg Pantoprazole Sodium (Protonix Ec Tab) 40 mg PO DAILY [facility] Last Admin: 08/05/18 08:40 Dose: 40 mg Fluticasone/Salmeterol (Advair Diskus 250/50) 1 puff IH Q12 [facility] Last Admin: 08/05/18 21:35 Dose: 1 puff Sevelamer Carbonate (Renvela) 2,400 mg PO TID [facility] Last Admin: 08/05/18 16:28 Dose: 2,400 mg Tamsulosin HCl (Flomax) 0.4 mg PO DAILY [facility] Last Admin: 08/05/18 08:38 Dose: 0.4 mg Vitamin B Complex/Vit C/Folic Acid (Nephro-Jules) 1 tab PO DAILY [facility] Last Admin: 08/05/18 08:40 Dose: 1 tab - Labs Labs: 08/06/18 04:25 08/06/18 04:25 - Constitutional Appears: Non-toxic, No Acute Distress - Extremities Exam Additional comments: B/L lower extremity focused exam: Vasc: DP/PT faintly palpable 1/4, CFT > 3 seconds, TG warm to warm, no pedal edema present Ortho: Pain with palpation of feet bilaterally, Hammertoe deformity 2-5 bilaterally with crossover deformity of 2nd digit, HAV deformity bilaterally, no pain with calf compression Neuro: Gross sensation intact, unable to assess protective sensation secondary to patient's mental status Derm: LLE: DTI to left heel secondary to pressure, Superficial ulceration secondary to skin breakdown, measuring approximately 3.0x1.0x.1cm,with 100% granular base, no drainage, no purulence, no erythema, no clinical signs of in fection noted. Necrotic distal tip of the hallux with color changes, no drainage, no purulence, no erythema. Friable, xerotic skin noted to b/l lower extremities. Elongated, dystrophic nails x10. Interdigital maceration to all webspaces. - Neurological Exam Neurological Exam: Alert, Awake, Oriented x3 - Psychiatric Exam Psychiatric exam: Normal Affect, Normal Mood Assessment and Plan - Assessment and Plan (Free Text) Assessment: 82 year old male with L posterior ankle superficial ulceration and necrotic distal tip of hallux Plan: Patient seen and evaluated Discussed patient in detail with Dr. Garcia Afebrile, WBC 9.3 Wound cx; Acinetobacter baumanni, Cornybacterium Continue IV abx per ID reccs Non-invasive vascular studies ordered; f/u results Foot x-rays ordered: No fracture or dislocation. Pes planus bilaterally, no degenerative changes Bone Scan: no evidence of acute OM, likely cellultis of the RLE Continue local wound care to LLE: betadine, DSD; patient refusing dressing today Multipodus boots ordered; to be worn at all times while in bed Will continue to follow
[2018-08-06 06:39] LABS: ANISOCYTOSIS SLIGHT; BASOPHIL 2 % (0-2); LYMPHOCYTE 4 % (20-50); MONOCYTE 5 % (0-10); NEUTROPHIL 89 % (42-75); PLATELET ESTIMATE NORMAL (NORMAL); POIKILOCYTOSIS SLIGHT; TOTAL CELLS COUNTED 100
--- NOTE | 2018-08-06 10:33 | CP.PCM.PN ---
Subjective - Date & Time of Evaluation Date of Evaluation: 08/06/18 Time of Evaluation: 07:00 - Subjective Subjective: on isolation for MDRO- likely colonized no pus bone scan neg Objective - Vital Signs/Intake and Output Vital Signs (last 24 hours): Temp Pulse Resp BP Pulse Ox 97.8 F 83 20 156/73 H 96 08/06/18 07:57 08/06/18 07:57 08/06/18 07:57 08/06/18 07:57 08/06/18 07:57 - Medications Medications: Current Medications Albuterol Sulfate (Albuterol 0.083% Inhal Mayte (2.5 Mg/3 Ml) Ud) 2.5 mg INH Q15MIN [facility] Stop: 08/06/18 17:16 Allopurinol (Zyloprim) 100 mg PO DAILY [facility] Last Admin: 08/05/18 08:45 Dose: 100 mg Amlodipine Besylate (Norvasc) 5 mg PO DAILY [facility] Last Admin: 08/05/18 08:40 Dose: 5 mg Calcitriol (Rocaltrol) 1 mcg PO DAILY [facility] Last Admin: 08/05/18 08:41 Dose: 1 mcg Carvedilol (Coreg) 6.25 mg PO Q12 [facility] Last Admin: 08/05/18 21:35 Dose: 6.25 mg Donepezil HCl (Aricept) 10 mg PO HS [facility] Last Admin: 08/05/18 21:35 Dose: 10 mg Fluticasone Propionate (Flonase) 1 spr MAN BID [facility] Last Admin: 08/05/18 16:30 Dose: 1 spr Heparin Sodium (Porcine) (Heparin) 5,000 units SC Q8 [facility]; Protocol Last Admin: 08/06/18 00:46 Dose: 5,000 units Ceftriaxone Sodium 1 gm/ (Sodium Chloride) 100 mls @ 100 mls/hr IVPB DAILY [facility]; Protocol Last Admin: 08/05/18 08:42 Dose: 100 mls/hr Azithromycin 500 mg/ Sodium (Chloride) 250 mls @ 250 mls/hr IVPB DAILY [facility]; Protocol Last Admin: 08/05/18 08:44 Dose: 250 mls/hr Memantine (Namenda) 5 mg PO Q12 [facility] Last Admin: 08/05/18 21:36 Dose: 5 mg Pantoprazole Sodium (Protonix Ec Tab) 40 mg PO DAILY [facility] Last Admin: 08/05/18 08:40 Dose: 40 mg Fluticasone/Salmeterol (Advair Diskus 250/50) 1 puff IH Q12 [facility] Last Admin: 08/05/18 21:35 Dose: 1 puff Sevelamer Carbonate (Renvela) 2,400 mg PO TID [facility] Last Admin: 08/05/18 16:28 Dose: 2,400 mg Tamsulosin HCl (Flomax) 0.4 mg PO DAILY [facility] Last Admin: 08/05/18 08:38 Dose: 0.4 mg Vitamin B Complex/Vit C/Folic Acid (Nephro-Jules) 1 tab PO DAILY [facility] Last Admin: 08/05/18 08:40 Dose: 1 tab - Labs Labs: 08/06/18 04:25 08/06/18 04:25 - Constitutional Appears: Non-toxic, Cachectic, Chronically Ill - Head Exam Head Exam: NORMOCEPHALIC - Eye Exam Eye Exam: absent: Scleral icterus - ENT Exam ENT Exam: Mucous Membranes Dry - Neck Exam Neck Exam: absent: Lymphadenopathy - Respiratory Exam Respiratory Exam: Decreased Breath Sounds - Cardiovascular Exam Cardiovascular Exam: REGULAR RHYTHM - GI/Abdominal Exam GI & Abdominal Exam: Distended - Rectal Exam Rectal Exam: Deferred - Exam Exam: NORMAL INSPECTION - Extremities Exam Extremities Exam: absent: Pedal Edema - Back Exam Back Exam: absent: CVA tenderness (L), CVA tenderness (R) - Neurological Exam Neurological Exam: Alert, Awake - Psychiatric Exam Psychiatric exam: Depressed Assessment and Plan (1) Pneumonia Status: Acute (2) Anemia in chronic kidney disease, on chronic dialysis Status: Chronic (3) End stage renal disease Status: Chronic - Assessment and Plan (Free Text) Assessment: vascular eval wound care podiatry follow up
[2018-08-06] MEDS: Fluticasone-Salmeterol 250-50mcg Diskus IH SCH ×2 (10:40→21:53)
[2018-08-06] MEDS: Pantoprazole 40 mg EC Tab PO SCH (10:41)
[2018-08-06] MEDS: Multivitamin Vitamin B Complex (Nephro-Vite) Tab PO SCH (10:42)
--- NOTE | 2018-08-06 10:54 | CP.PCM.PN ---
Subjective - Date & Time of Evaluation Date of Evaluation: 08/06/18 Time of Evaluation: 11:15 - Subjective Subjective: Dialysis note Patient remained drowsy he appears to be eating well Chronically ill and debilitated Follow-up no chest pain Objective - Vital Signs/Intake and Output Vital Signs (last 24 hours): Temp Pulse Resp BP Pulse Ox 97.8 F 83 20 156/73 H 96 08/06/18 07:57 08/06/18 07:57 08/06/18 07:57 08/06/18 07:57 08/06/18 07:57 - Medications Medications: Current Medications Albuterol Sulfate (Albuterol 0.083% Inhal Mayte (2.5 Mg/3 Ml) Ud) 2.5 mg INH Q15MIN [facility] Stop: 08/06/18 17:16 Allopurinol (Zyloprim) 100 mg PO DAILY [facility] Last Admin: 08/06/18 10:43 Dose: 100 mg Amlodipine Besylate (Norvasc) 5 mg PO DAILY [facility] Last Admin: 08/05/18 08:40 Dose: 5 mg Calcitriol (Rocaltrol) 1 mcg PO DAILY [facility] Last Admin: 08/06/18 10:41 Dose: 1 mcg Carvedilol (Coreg) 6.25 mg PO Q12 [facility] Last Admin: 08/05/18 21:35 Dose: 6.25 mg Donepezil HCl (Aricept) 10 mg PO HS [facility] Last Admin: 08/05/18 21:35 Dose: 10 mg Fluticasone Propionate (Flonase) 1 spr MAN BID [facility] Last Admin: 08/06/18 10:41 Dose: 1 spr Heparin Sodium (Porcine) (Heparin) 5,000 units SC Q8 [facility]; Protocol Last Admin: 08/06/18 10:42 Dose: 5,000 units Ceftriaxone Sodium 1 gm/ (Sodium Chloride) 100 mls @ 100 mls/hr IVPB DAILY [facility]; Protocol Last Admin: 08/05/18 08:42 Dose: 100 mls/hr Azithromycin 500 mg/ Sodium (Chloride) 250 mls @ 250 mls/hr IVPB DAILY [facility]; Protocol Last Admin: 08/05/18 08:44 Dose: 250 mls/hr Memantine (Namenda) 5 mg PO Q12 [facility] Last Admin: 08/06/18 10:42 Dose: 5 mg Pantoprazole Sodium (Protonix Ec Tab) 40 mg PO DAILY [facility] Last Admin: 08/06/18 10:41 Dose: 40 mg Fluticasone/Salmeterol (Advair Diskus 250/50) 1 puff IH Q12 [facility] Last Admin: 08/06/18 10:40 Dose: 1 puff Sevelamer Carbonate (Renvela) 2,400 mg PO TID [facility] Last Admin: 08/06/18 10:41 Dose: 2,400 mg Tamsulosin HCl (Flomax) 0.4 mg PO DAILY [facility] Last Admin: 08/06/18 10:42 Dose: 0.4 mg Vitamin B Complex/Vit C/Folic Acid (Nephro-Jules) 1 tab PO DAILY [facility] Last Admin: 08/06/18 10:42 Dose: 1 tab - Labs Labs: 08/06/18 04:25 08/06/18 04:25 - Constitutional Appears: No Acute Distress - Eye Exam Eye Exam: Conjunctival injection - ENT Exam ENT Exam: Mucous Membranes Dry - Neck Exam Neck Exam: absent: Lymphadenopathy - Respiratory Exam Respiratory Exam: NORMAL BREATHING PATTERN. absent: Chest Wall Tenderness - Cardiovascular Exam Cardiovascular Exam: absent: Gallop, JVD, Rubs - GI/Abdominal Exam GI & Abdominal Exam: Soft, Normal Bowel Sounds - Extremities Exam Extremities Exam: absent: Calf Tenderness - Back Exam Back Exam: absent: CVA tenderness (L), CVA tenderness (R) - Neurological Exam Neurological Exam: Altered - Psychiatric Exam Psychiatric exam: Flat Affect - Skin Skin Exam: absent: Cyanosis Assessment and Plan (1) Anemia in chronic kidney disease, on chronic dialysis Assessment & Plan: End-stage renal disease, he was seen on hemodialysis. I discussed order with the dialysis nurse. To remove little fluid about 500 cc as tolerated Left foot ulcer Hypertension Pneumonia as described in the x-ray Hyperphosphatemia Altered mental status with Alzheimer and dementia Possibly peripheral vascular disease? plan he was seen on hemodialysis. I discussed order with the dialysis nurse. To remove little fluid about 500 cc as tolerated Potassium bath 2 mEq Bicarbonate bath 34 Status: Chronic (2) End stage renal disease Status: Chronic (3) Hyperkalemia Status: Acute
--- NOTE | 2018-08-06 13:23 | RAD ---
Date of service: 08/06/2018 PROCEDURE: CHEST RADIOGRAPH, 1 VIEW HISTORY: chronic, persistent cough; PNA COMPARISON: 08/01/2018 single-view chest FINDINGS: LUNGS: Persistent left lower lobe infiltrate PLEURA: No pneumothorax or pleural fluid seen. CARDIOVASCULAR: Atherosclerotic calcifications identified primarily aortic arch. Normal. OSSEOUS STRUCTURES: No significant abnormalities. VISUALIZED UPPER ABDOMEN: Normal. OTHER FINDINGS: None. IMPRESSION: Persistent infiltrate left lower lobe without appreciable interval change.
[2018-08-06] MEDS: Azithromycin 500 MG in Sodium Chloride 0.9% 250 ML IVPB SCH (16:00)
--- NOTE | 2018-08-07 07:57 | CP.PCM.PN ---
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 Patient resting comfortably and in NAD. Patient states that he is feeling better today but his legs hurt. Denies N/V/F. Objective - Vital Signs/Intake and Output Vital Signs (last 24 hours): Temp Pulse Resp BP Pulse Ox 98.3 F 76 19 132/70 95 08/07/18 04:43 08/07/18 04:43 08/07/18 04:43 08/07/18 04:43 08/07/18 04:43 - Medications Medications: Current Medications Allopurinol (Zyloprim) 100 mg PO DAILY [facility] Last Admin: 08/06/18 10:43 Dose: 100 mg Amlodipine Besylate (Norvasc) 5 mg PO DAILY [facility] Last Admin: 08/06/18 09:36 Dose: Not Given Calcitriol (Rocaltrol) 1 mcg PO DAILY [facility] Last Admin: 08/06/18 10:41 Dose: 1 mcg Carvedilol (Coreg) 6.25 mg PO Q12 [facility] Last Admin: 08/06/18 21:48 Dose: 6.25 mg Donepezil HCl (Aricept) 10 mg PO HS [facility] Last Admin: 08/06/18 21:53 Dose: 10 mg Fluticasone Propionate (Flonase) 1 spr MAN BID [facility] Last Admin: 08/06/18 17:35 Dose: Not Given Ceftriaxone Sodium 1 gm/ (Sodium Chloride) 100 mls @ 100 mls/hr IVPB DAILY [facility]; Protocol Last Admin: 08/06/18 13:30 Dose: 100 mls/hr Azithromycin 500 mg/ Sodium (Chloride) 250 mls @ 250 mls/hr IVPB DAILY [facility]; Protocol Last Admin: 08/06/18 16:00 Dose: 250 mls/hr Memantine (Namenda) 5 mg PO Q12 [facility] Last Admin: 08/06/18 21:52 Dose: 5 mg Pantoprazole Sodium (Protonix Ec Tab) 40 mg PO DAILY [facility] Last Admin: 08/06/18 10:41 Dose: 40 mg Fluticasone/Salmeterol (Advair Diskus 250/50) 1 puff IH Q12 [facility] Last Admin: 08/06/18 21:53 Dose: Not Given Sevelamer Carbonate (Renvela) 2,400 mg PO TID [facility] Last Admin: 08/06/18 17:36 Dose: Not Given Tamsulosin HCl (Flomax) 0.4 mg PO DAILY [facility] Last Admin: 08/06/18 10:42 Dose: 0.4 mg Vitamin B Complex/Vit C/Folic Acid (Nephro-Jules) 1 tab PO DAILY [facility] Last Admin: 08/06/18 10:42 Dose: 1 tab - Labs Labs: 08/06/18 04:25 08/06/18 04:25 - Constitutional Appears: Non-toxic, No Acute Distress - Extremities Exam Additional comments: B/L lower extremity focused exam: Vasc: DP/PT faintly palpable 1/4, CFT > 3 seconds, TG warm to warm, no pedal edema present Ortho: Pain with palpation of feet bilaterally, Hammertoe deformity 2-5 bilaterally with crossover deformity of 2nd digit, HAV deformity bilaterally, no pain with calf compression Neuro: Gross sensation intact, unable to assess protective sensation secondary to patient's mental status Derm: LLE: DTI to left heel secondary to pressure, grade 0, Superficial ulceration secondary to skin breakdown, measuring approximately 3.0x1.0x.1cm,with 100% granular base, no drainage, no purulence, no erythema, no clinical signs of infection noted, grade 1. Necrotic distal tip of the hallux with color changes, no drainage, no purulence, no erythema. Friable, xerotic skin noted to b/l lower extremities. - Neurological Exam Neurological Exam: Alert, Awake - Psychiatric Exam Psychiatric exam: Normal Affect, Normal Mood Assessment and Plan - Assessment and Plan (Free Text) Assessment: 82 year old male with L posterior ankle superficial ulceration and necrotic distal tip of hallux Plan: Patient seen and evaluated Discussed patient in detail with Dr. Garcia Afebrile, WBC 8.4, ESR 117 Wound cx; Acinetobacter baumanni, Cornybacterium Continue IV abx per ID reccs; Ceftriaxone, Azithromycin Non-invasive vascular studies ordered; f/u results Vasc consult, Dr. Donis, ordered; reccs appreciated Foot x-rays ordered: No fracture or dislocation. Pes planus bilaterally, no degenerative changes Bone Scan: no evidence of acute OM, likely cellultis of the RLE Continue local wound care to LLE: betadine, DSD; patient refusing dressing today Multipodus boots ordered; to be worn at all times while in bed Will continue to follow
[2018-08-07] MEDS: Fluticasone-Salmeterol 250-50mcg Diskus IH SCH ×2 (08:53→22:06)
[2018-08-07] MEDS: Azithromycin 500 MG in Sodium Chloride 0.9% 250 ML IVPB SCH (08:54)
[2018-08-07] MEDS: Pantoprazole 40 mg EC Tab PO SCH (08:55)
[2018-08-07] MEDS: Multivitamin Vitamin B Complex (Nephro-Vite) Tab PO SCH (08:55)
--- NOTE | 2018-08-07 14:21 | CP.PCM.PN ---
Subjective - Date & Time of Evaluation Date of Evaluation: 08/07/18 Time of Evaluation: 14:21 - Subjective Subjective: Patient somewhat more responsive Vital signs noted to be stable No chest pain reported no nausea no vomiting Objective - Vital Signs/Intake and Output Vital Signs (last 24 hours): Temp Pulse Resp BP Pulse Ox 97.6 F 72 18 106/54 L 94 L 08/07/18 11:45 08/07/18 11:45 08/07/18 11:45 08/07/18 11:45 08/07/18 11:45 - Medications Medications: Current Medications Allopurinol (Zyloprim) 100 mg PO DAILY [facility] Last Admin: 08/07/18 08:54 Dose: 100 mg Amlodipine Besylate (Norvasc) 5 mg PO DAILY [facility] Last Admin: 08/07/18 08:55 Dose: 5 mg Calcitriol (Rocaltrol) 1 mcg PO DAILY [facility] Last Admin: 08/07/18 08:57 Dose: 1 mcg Carvedilol (Coreg) 6.25 mg PO Q12 [facility] Last Admin: 08/07/18 08:53 Dose: 6.25 mg Donepezil HCl (Aricept) 10 mg PO HS [facility] Last Admin: 08/06/18 21:53 Dose: 10 mg Fluticasone Propionate (Flonase) 1 spr MAN BID [facility] Last Admin: 08/07/18 08:56 Dose: 1 spr Ceftriaxone Sodium 1 gm/ (Sodium Chloride) 100 mls @ 100 mls/hr IVPB DAILY [facility]; Protocol Last Admin: 08/07/18 08:54 Dose: 100 mls/hr Azithromycin 500 mg/ Sodium (Chloride) 250 mls @ 250 mls/hr IVPB DAILY [facility]; Protocol Last Admin: 08/07/18 08:54 Dose: 250 mls/hr Memantine (Namenda) 5 mg PO Q12 [facility] Last Admin: 08/07/18 08:55 Dose: 5 mg Pantoprazole Sodium (Protonix Ec Tab) 40 mg PO DAILY [facility] Last Admin: 08/07/18 08:55 Dose: 40 mg Fluticasone/Salmeterol (Advair Diskus 250/50) 1 puff IH Q12 [facility] Last Admin: 08/07/18 08:53 Dose: 1 puff Sevelamer Carbonate (Renvela) 2,400 mg PO TID [facility] Last Admin: 08/07/18 13:16 Dose: 2,400 mg Tamsulosin HCl (Flomax) 0.4 mg PO DAILY [facility] Last Admin: 08/07/18 08:54 Dose: 0.4 mg Vitamin B Complex/Vit C/Folic Acid (Nephro-Jules) 1 tab PO DAILY [facility] Last Admin: 08/07/18 08:55 Dose: 1 tab - Labs Labs: 08/06/18 04:25 08/06/18 04:25 - Constitutional Appears: No Acute Distress - Eye Exam Eye Exam: Conjunctival injection - ENT Exam ENT Exam: Mucous Membranes Moist - Respiratory Exam Respiratory Exam: NORMAL BREATHING PATTERN. absent: Rales, Rhonchi - Cardiovascular Exam Cardiovascular Exam: absent: Gallop, JVD, Rubs - GI/Abdominal Exam GI & Abdominal Exam: Soft, Normal Bowel Sounds - Extremities Exam Extremities Exam: absent: Calf Tenderness - Back Exam Back Exam: absent: CVA tenderness (L), CVA tenderness (R) - Neurological Exam Neurological Exam: Alert - Skin Skin Exam: absent: Cyanosis Assessment and Plan (1) Anemia in chronic kidney disease, on chronic dialysis Status: Chronic (2) End stage renal disease Assessment & Plan: End-stage renal disease, he was seen on hemodialysis. Left foot ulcer Hypertension Pneumonia as described in the x-ray Hyperphosphatemia Altered mental status with Alzheimer and dementia Possibly peripheral vascular disease? plan Patient is somewhat more awake Continue antibiotics as per renal dose Patient need physiotherapy Dietary follow-up Status: Chronic (3) Hyperkalemia Status: Acute
[2018-08-08 01:11] VITALS: RESP 20
--- NOTE | 2018-08-08 02:31 | CP.PCM.CON ---
History of Present Illness - History of Present Illness History of Present Illness: 82M w/ a PMH of ESRD (on HD), HTN, BPH, Dementia, presented to [facility] ED on 08/01 w/ c/o AMS and weakness. Initially patient was not alert or oriented; missed multiple dialysis appointments; and was found to have a chronic wound on his L LE. Podiatry was consulted, Foot XR showed BL degenerative changes; bone scan of L foot was w/o evidence of acute osseous process. ID Consulted patient started on IV ABX. Cardiology consulted for vascular assessment of gangrenous L hallux. At time of evaluation pt is oriented to person/place however does not express orientation to his situation. Patient is unable to provide any meaningful hist ory in regards to his LLE wound. Does not complain of CP, SOB, Abd, N/v/d/c, LE pain. Patient is somewhat somnolent on exam, and is only asking for cigarette. Remainder of 12 system ROS is otherwise negative. PMH: As above PSH: Unknown Social: 2ppdx 61 years, Drinks daily, denied illicit drug use Allergies: NKDA as per chart review FamHx: Patient unabel to provide Review of Systems - Review of Systems All systems: reviewed and no additional remarkable complaints except Review of Systems: as per HPI Past Patient History - Past Medical History & Family History Past Medical History?: Yes - Past Social History Alcohol: None Drugs: Denies - CARDIAC Hx Hypertension: Yes - NEUROLOGICAL Hx Dementia: Yes - RENAL Hx Chronic Kidney Disease: Yes Type of Dialysis Access: left AV fistula - ENDOCRINE/METABOLIC Hx Diabetes Mellitus Type 2: Yes - HEMATOLOGICAL/ONCOLOGICAL Hx AIDS: No Hx Human Immunodeficiency Virus (HIV): No - MUSCULOSKELETAL/RHEUMATOLOGICAL Hx Falls: No Hx Spinal Stenosis: Yes - GASTROINTESTINAL Hx Gastrointestinal Disorders: No - PSYCHIATRIC Hx Psychophysiologic Disorder: No Hx Substance Use: No - SURGICAL HISTORY Hx Surgeries: (unable to obtain) - ANESTHESIA Hx Anesthesia: Yes Hx Anesthesia Reactions: No Hx Malignant Hyperthermia: No Has any member of the family had a problem w/ anesthesia?: No Meds Allergies/Adverse Reactions: Allergies Allergy/AdvReac Type Severity Reaction Status Date / Time No Known Allergies Allergy Verified 08/01/18 11:15 - Medications Medications: Current Medications Allopurinol (Zyloprim) 100 mg PO DAILY [facility] Last Admin: 08/07/18 08:54 Dose: 100 mg Aspirin (Aspirin Chewable) 81 mg PO DAILY [facility] Atorvastatin Calcium (Lipitor) 40 mg PO DAILY [facility] Calcitriol (Rocaltrol) 1 mcg PO DAILY [facility] Last Admin: 08/07/18 08:57 Dose: 1 mcg Carvedilol (Coreg) 6.25 mg PO Q12 [facility] Last Admin: 08/07/18 22:06 Dose: 6.25 mg Clopidogrel Bisulfate (Plavix) 75 mg PO DAILY [facility] Donepezil HCl (Aricept) 10 mg PO HS [facility] Last Admin: 08/07/18 22:09 Dose: 10 mg Fluticasone Propionate (Flonase) 1 spr MAN BID [facility] Last Admin: 08/07/18 16:51 Dose: 1 spr Heparin Sodium (Porcine) (Heparin) 5,000 units SC Q8 [facility]; Protocol Last Admin: 08/08/18 00:39 Dose: 5,000 units Ceftriaxone Sodium 1 gm/ (Sodium Chloride) 100 mls @ 100 mls/hr IVPB DAILY [facility]; Protocol Last Admin: 08/07/18 08:54 Dose: 100 mls/hr Azithromycin 500 mg/ Sodium (Chloride) 250 mls @ 250 mls/hr IVPB DAILY [facility]; Protocol Last Admin: 08/07/18 08:54 Dose: 250 mls/hr Memantine (Namenda) 5 mg PO Q12 [facility] Last Admin: 08/07/18 22:00 Dose: 5 mg Pantoprazole Sodium (Protonix Ec Tab) 40 mg PO DAILY [facility] Last Admin: 08/07/18 08:55 Dose: 40 mg Fluticasone/Salmeterol (Advair Diskus 250/50) 1 puff IH Q12 [facility] Last Admin: 08/07/18 22:06 Dose: 1 puff Sevelamer Carbonate (Renvela) 2,400 mg PO TID [facility] Last Admin: 08/07/18 16:50 Dose: 2,400 mg Tamsulosin HCl (Flomax) 0.4 mg PO DAILY [facility] Last Admin: 08/07/18 08:54 Dose: 0.4 mg Vitamin B Complex/Vit C/Folic Acid (Nephro-Jules) 1 tab PO DAILY [facility] Last Admin: 08/07/18 08:55 Dose: 1 tab Physical Exam - Constitutional Appears: Confused, Chronically Ill - Head Exam Head Exam: ATRAUMATIC, NORMOCEPHALIC - Eye Exam Eye Exam: EOMI Additional comments: Exophthalmos bilaterally L eye w/ exotropia - ENT Exam ENT Exam: Mucous Membranes Moist - Respiratory Exam Respiratory Exam: Rhonchi - Cardiovascular Exam Cardiovascular Exam: RRR, +S1, +S2 - GI/Abdominal Exam GI & Abdominal Exam: Soft. absent: Tenderness - Extremities Exam Additional comments: BL LE warm w/ 1+ pitting edema BL feet w/ dressings in place Dressings CDI - Neurological Exam Additional comments: Oriented x2 Somnolent - Psychiatric Exam Psychiatric exam: Normal Affect, Normal Mood - Skin Skin Exam: Dry, Intact, Normal Color, Warm Results - Vital Signs Recent Vital Signs: Last Vital Signs Temp 97.3 F L 08/08/18 01:00 Pulse 78 08/08/18 01:00 Resp 20 08/08/18 01:00 BP 130/73 08/08/18 01:00 Pulse Ox 99 08/08/18 01:00 - Labs Result Diagrams: 08/06/18 04:25 08/06/18 04:25 Labs: Laboratory Results - last 24 hr 08/05/18 08/06/18 08/06/18 21:05 05:29 11:37 POC Glucose (mg/dL) 107 87 54 L 08/06/18 08/07/18 08/07/18 17:20 06:01 11:05 POC Glucose (mg/dL) 133 H 83 148 H 08/07/18 08/07/18 16:14 21:48 POC Glucose (mg/dL) 147 H 137 H Assessment & Plan (1) Peripheral vascular disease Status: Acute Priority: High (2) Hypertension Status: Chronic (3) End stage renal disease Status: Chronic - Assessment and Plan (Free Text) Plan: Cardiology consulted for vascular evaluation of LLE w/ gangrenous hallux Will follow up CT angio w/ ileofem run off Stop Norvasc Start ASA + Plavix + Lipitor Continue Coreg 6.25 Q12 Echo 08/07/18: w/ EF 55% mild basal inferior wall hypokinesis; Grade 1 abnormal relaxation pattern; Moderate MR, Severe TR, mild pulm HTN
--- NOTE | 2018-08-08 07:21 | CP.PCM.PN ---
Subjective - Date & Time of Evaluation Date of Evaluation: 08/06/18 Time of Evaluation: 11:00 - Subjective Subjective: patient looks betetr today Hgb has gone up to 10. More awake Gets very confused at times. Objective - Vital Signs/Intake and Output Vital Signs (last 24 hours): Temp Pulse Resp BP Pulse Ox 97.3 F L 78 20 125/68 98 08/08/18 05:00 08/08/18 05:00 08/08/18 05:00 08/08/18 05:00 08/08/18 05:00 - Medications Medications: Current Medications Allopurinol (Zyloprim) 100 mg PO DAILY [facility] Last Admin: 08/07/18 08:54 Dose: 100 mg Aspirin (Aspirin Chewable) 81 mg PO DAILY [facility] Atorvastatin Calcium (Lipitor) 40 mg PO DAILY [facility] Calcitriol (Rocaltrol) 1 mcg PO DAILY [facility] Last Admin: 08/07/18 08:57 Dose: 1 mcg Carvedilol (Coreg) 6.25 mg PO Q12 [facility] Last Admin: 08/07/18 22:06 Dose: 6.25 mg Clopidogrel Bisulfate (Plavix) 75 mg PO DAILY [facility] Donepezil HCl (Aricept) 10 mg PO HS [facility] Last Admin: 08/07/18 22:09 Dose: 10 mg Fluticasone Propionate (Flonase) 1 spr MAN BID [facility] Last Admin: 08/07/18 16:51 Dose: 1 spr Heparin Sodium (Porcine) (Heparin) 5,000 units SC Q8 [facility]; Protocol Last Admin: 08/08/18 00:39 Dose: 5,000 units Ceftriaxone Sodium 1 gm/ (Sodium Chloride) 100 mls @ 100 mls/hr IVPB DAILY [facility]; Protocol Last Admin: 08/07/18 08:54 Dose: 100 mls/hr Azithromycin 500 mg/ Sodium (Chloride) 250 mls @ 250 mls/hr IVPB DAILY [facility]; Protocol Last Admin: 08/07/18 08:54 Dose: 250 mls/hr Memantine (Namenda) 5 mg PO Q12 [facility] Last Admin: 08/07/18 22:00 Dose: 5 mg Pantoprazole Sodium (Protonix Ec Tab) 40 mg PO DAILY [facility] Last Admin: 08/07/18 08:55 Dose: 40 mg Fluticasone/Salmeterol (Advair Diskus 250/50) 1 puff IH Q12 [facility] Last Admin: 08/07/18 22:06 Dose: 1 puff Sevelamer Carbonate (Renvela) 2,400 mg PO TID [facility] Last Admin: 08/07/18 16:50 Dose: 2,400 mg Tamsulosin HCl (Flomax) 0.4 mg PO DAILY [facility] Last Admin: 08/07/18 08:54 Dose: 0.4 mg Vitamin B Complex/Vit C/Folic Acid (Nephro-Jules) 1 tab PO DAILY [facility] Last Admin: 08/07/18 08:55 Dose: 1 tab - Labs Labs: 08/06/18 04:25 08/06/18 04:25 - Head Exam Head Exam: NORMAL INSPECTION - Eye Exam Eye Exam: Normal appearance - ENT Exam ENT Exam: Mucous Membranes Moist - Respiratory Exam Respiratory Exam: Clear to Ausculation Bilateral - Cardiovascular Exam Cardiovascular Exam: REGULAR RHYTHM - GI/Abdominal Exam GI & Abdominal Exam: Normal Bowel Sounds - Neurological Exam Neurological Exam: Altered, Awake - Psychiatric Exam Psychiatric exam: Normal Mood Assessment and Plan (1) Hyperkalemia Status: Acute (2) Pneumonia Status: Acute (3) Anemia in chronic kidney disease, on chronic dialysis Status: Chronic (4) Hypertension Status: Chronic (5) Dementia Status: Acute - Assessment and Plan (Free Text) Plan: Cont meds Cont HD monitor cbc CXR neb tx
--- NOTE | 2018-08-08 07:32 | CP.PCM.PN ---
Subjective - Date & Time of Evaluation Date of Evaluation: 08/07/18 Time of Evaluation: 11:00 - Subjective Subjective: Patient is much more awake Has no fever CXR showed persistent left lower lobe infiltrate. Objective - Vital Signs/Intake and Output Vital Signs (last 24 hours): Temp Pulse Resp BP Pulse Ox 97.3 F L 78 20 125/68 98 08/08/18 05:00 08/08/18 05:00 08/08/18 05:00 08/08/18 05:00 08/08/18 05:00 - Medications Medications: Current Medications Allopurinol (Zyloprim) 100 mg PO DAILY [facility] Last Admin: 08/07/18 08:54 Dose: 100 mg Aspirin (Aspirin Chewable) 81 mg PO DAILY [facility] Atorvastatin Calcium (Lipitor) 40 mg PO DAILY [facility] Calcitriol (Rocaltrol) 1 mcg PO DAILY [facility] Last Admin: 08/07/18 08:57 Dose: 1 mcg Carvedilol (Coreg) 6.25 mg PO Q12 [facility] Last Admin: 08/07/18 22:06 Dose: 6.25 mg Clopidogrel Bisulfate (Plavix) 75 mg PO DAILY [facility] Donepezil HCl (Aricept) 10 mg PO HS [facility] Last Admin: 08/07/18 22:09 Dose: 10 mg Fluticasone Propionate (Flonase) 1 spr MAN BID [facility] Last Admin: 08/07/18 16:51 Dose: 1 spr Heparin Sodium (Porcine) (Heparin) 5,000 units SC Q8 [facility]; Protocol Last Admin: 08/08/18 00:39 Dose: 5,000 units Ceftriaxone Sodium 1 gm/ (Sodium Chloride) 100 mls @ 100 mls/hr IVPB DAILY [facility]; Protocol Last Admin: 08/07/18 08:54 Dose: 100 mls/hr Azithromycin 500 mg/ Sodium (Chloride) 250 mls @ 250 mls/hr IVPB DAILY [facility]; Protocol Last Admin: 08/07/18 08:54 Dose: 250 mls/hr Memantine (Namenda) 5 mg PO Q12 [facility] Last Admin: 08/07/18 22:00 Dose: 5 mg Pantoprazole Sodium (Protonix Ec Tab) 40 mg PO DAILY [facility] Last Admin: 08/07/18 08:55 Dose: 40 mg Fluticasone/Salmeterol (Advair Diskus 250/50) 1 puff IH Q12 [facility] Last Admin: 08/07/18 22:06 Dose: 1 puff Sevelamer Carbonate (Renvela) 2,400 mg PO TID [facility] Last Admin: 08/07/18 16:50 Dose: 2,400 mg Tamsulosin HCl (Flomax) 0.4 mg PO DAILY [facility] Last Admin: 08/07/18 08:54 Dose: 0.4 mg Vitamin B Complex/Vit C/Folic Acid (Nephro-Jules) 1 tab PO DAILY [facility] Last Admin: 08/07/18 08:55 Dose: 1 tab - Labs Labs: 08/06/18 04:25 08/06/18 04:25 - Head Exam Head Exam: NORMAL INSPECTION - Eye Exam Eye Exam: Normal appearance - ENT Exam ENT Exam: Mucous Membranes Moist - Respiratory Exam Respiratory Exam: Clear to Ausculation Bilateral - Cardiovascular Exam Cardiovascular Exam: REGULAR RHYTHM - GI/Abdominal Exam GI & Abdominal Exam: Normal Bowel Sounds - Neurological Exam Neurological Exam: Altered, Awake - Psychiatric Exam Psychiatric exam: Anxious Assessment and Plan (1) Hyperkalemia Status: Acute (2) Pneumonia Status: Acute (3) Anemia in chronic kidney disease, on chronic dialysis Status: Chronic (4) Hypertension Status: Chronic (5) Dementia Status: Acute (6) End stage renal disease Status: Chronic - Assessment and Plan (Free Text) Plan: Cont meds Cont tx Cont wound care start phys therapy
[2018-08-08] MEDS ORDERED: Epoetin Alfa 20000 UNIT/ML Inj IV SCH (09:00)
[2018-08-08] MEDS: Pantoprazole 40 mg EC Tab PO SCH (09:40)
[2018-08-08] MEDS: Fluticasone-Salmeterol 250-50mcg Diskus IH SCH (09:41)
[2018-08-08] MEDS: Multivitamin Vitamin B Complex (Nephro-Vite) Tab PO SCH (09:41)
[2018-08-08] MEDS: Azithromycin 500 MG in Sodium Chloride 0.9% 250 ML IVPB SCH (09:42)
[2018-08-08] MEDS ORDERED: Albuterol-Ipratrop 3 mg / 0.5 (3 ml) UD INH PRN (10:07)
--- NOTE | 2018-08-08 10:14 | CP.PCM.PN ---
Subjective - Date & Time of Evaluation Date of Evaluation: 08/08/18 Time of Evaluation: 10:19 - Subjective Subjective: Dialysis note He was seen on hemodialysis now. Patient awake and conscious and he appears to be communicating much better Reported by the nurse that he is eating better I discussed the order with the dialysis nurse Blood pressure in the low side no more ultrafiltration Objective - Vital Signs/Intake and Output Vital Signs (last 24 hours): Temp Pulse Resp BP Pulse Ox 97.7 F 64 20 118/66 96 08/08/18 08:39 08/08/18 08:39 08/08/18 08:39 08/08/18 08:39 08/08/18 08:39 - Medications Medications: Current Medications Albuterol/Ipratropium (Duoneb 3 Mg/0.5 Mg (3 Ml) Ud) 3 ml INH RQ4 PRN PRN Reason: Shortness of Breath Allopurinol (Zyloprim) 100 mg PO DAILY [facility] Last Admin: 08/08/18 09:40 Dose: 100 mg Aspirin (Aspirin Chewable) 81 mg PO DAILY [facility] Last Admin: 08/08/18 09:40 Dose: 81 mg Atorvastatin Calcium (Lipitor) 40 mg PO DAILY [facility] Last Admin: 08/08/18 09:41 Dose: 40 mg Calcitriol (Rocaltrol) 1 mcg PO DAILY [facility] Last Admin: 08/08/18 09:39 Dose: 1 mcg Carvedilol (Coreg) 6.25 mg PO Q12 [facility] Last Admin: 08/07/18 22:06 Dose: 6.25 mg Clopidogrel Bisulfate (Plavix) 75 mg PO DAILY [facility] Last Admin: 08/08/18 09:40 Dose: 75 mg Donepezil HCl (Aricept) 10 mg PO HS [facility] Last Admin: 08/07/18 22:09 Dose: 10 mg Fluticasone Propionate (Flonase) 1 spr MAN BID [facility] Last Admin: 08/08/18 09:40 Dose: 1 spr Heparin Sodium (Porcine) (Heparin) 5,000 units SC Q8 [facility]; Protocol Last Admin: 08/08/18 09:39 Dose: 5,000 units Ceftriaxone Sodium 1 gm/ (Sodium Chloride) 100 mls @ 100 mls/hr IVPB DAILY [facility]; Protocol Last Admin: 08/08/18 09:42 Dose: 100 mls/hr Azithromycin 500 mg/ Sodium (Chloride) 250 mls @ 250 mls/hr IVPB DAILY [facility]; Protocol Last Admin: 08/08/18 09:42 Dose: 250 mls/hr Memantine (Namenda) 5 mg PO Q12 [facility] Last Admin: 08/08/18 09:39 Dose: 5 mg Pantoprazole Sodium (Protonix Ec Tab) 40 mg PO DAILY [facility] Last Admin: 08/08/18 09:40 Dose: 40 mg Fluticasone/Salmeterol (Advair Diskus 250/50) 1 puff IH Q12 [facility] Last Admin: 08/08/18 09:41 Dose: Not Given Sevelamer Carbonate (Renvela) 2,400 mg PO TID [facility] Last Admin: 08/08/18 09:39 Dose: 2,400 mg Tamsulosin HCl (Flomax) 0.4 mg PO DAILY [facility] Last Admin: 08/08/18 09:40 Dose: 0.4 mg Vitamin B Complex/Vit C/Folic Acid (Nephro-Jules) 1 tab PO DAILY [facility] Last Admin: 08/08/18 09:41 Dose: 1 tab - Labs Labs: 08/06/18 04:25 08/06/18 04:25 - Constitutional Appears: No Acute Distress - Eye Exam Eye Exam: Conjunctival injection - ENT Exam ENT Exam: Mucous Membranes Dry - Respiratory Exam Respiratory Exam: absent: Chest Wall Tenderness - Cardiovascular Exam Cardiovascular Exam: absent: Gallop, JVD, Rubs - GI/Abdominal Exam GI & Abdominal Exam: Soft, Normal Bowel Sounds - Extremities Exam Extremities Exam: absent: Calf Tenderness - Back Exam Back Exam: absent: CVA tenderness (L), CVA tenderness (R) - Neurological Exam Neurological Exam: Awake - Skin Skin Exam: absent: Cyanosis Assessment and Plan (1) Anemia in chronic kidney disease, on chronic dialysis Status: Chronic (2) End stage renal disease Assessment & Plan: End-stage renal disease, he was seen on hemodialysis. I discussed order with the dialysis nurse. To remove little fluid about 500 cc as tolerated Left foot ulcer Hypertension Pneumonia as described in the x-ray. Persistent infiltrate in the left lower lobe Hyperphosphatemia Altered mental status with Alzheimer and dementia Possibly peripheral vascular disease? plan he was seen on hemodialysis. I discussed order with the dialysis nurse. To remove little fluid about 500 cc as tolerated Potassium bath 2 mEq Bicarbonate bath 34 Antibiotics as per primary team Phosphorus binder to be continue EPO for anemia Status: Chronic (3) Hyperkalemia Status: Acute
--- NOTE | 2018-08-08 11:55 | CP.PCM.PN ---
Subjective - Date & Time of Evaluation Date of Evaluation: 08/08/18 Time of Evaluation: 08:00 - Subjective Subjective: awaiting CT angio gangrenous digit stable no fever Objective - Vital Signs/Intake and Output Vital Signs (last 24 hours): Temp Pulse Resp BP Pulse Ox 97.7 F 64 20 118/66 96 08/08/18 08:39 08/08/18 08:39 08/08/18 08:39 08/08/18 08:39 08/08/18 08:39 - Medications Medications: Current Medications Albuterol/Ipratropium (Duoneb 3 Mg/0.5 Mg (3 Ml) Ud) 3 ml INH RQ4 PRN PRN Reason: Shortness of Breath Allopurinol (Zyloprim) 100 mg PO DAILY [facility] Last Admin: 08/08/18 09:40 Dose: 100 mg Aspirin (Aspirin Chewable) 81 mg PO DAILY [facility] Last Admin: 08/08/18 09:40 Dose: 81 mg Atorvastatin Calcium (Lipitor) 40 mg PO DAILY [facility] Last Admin: 08/08/18 09:41 Dose: 40 mg Calcitriol (Rocaltrol) 1 mcg PO DAILY [facility] Last Admin: 08/08/18 09:39 Dose: 1 mcg Carvedilol (Coreg) 6.25 mg PO Q12 [facility] Last Admin: 08/07/18 22:06 Dose: 6.25 mg Clopidogrel Bisulfate (Plavix) 75 mg PO DAILY [facility] Last Admin: 08/08/18 09:40 Dose: 75 mg Donepezil HCl (Aricept) 10 mg PO HS [facility] Last Admin: 08/07/18 22:09 Dose: 10 mg Epoetin Usman (Procrit) 6,000 unit IV MWF [facility] Fluticasone Propionate (Flonase) 1 spr MAN BID [facility] Last Admin: 08/08/18 09:40 Dose: 1 spr Heparin Sodium (Porcine) (Heparin) 5,000 units SC Q8 [facility]; Protocol Last Admin: 08/08/18 09:39 Dose: 5,000 units Ceftriaxone Sodium 1 gm/ (Sodium Chloride) 100 mls @ 100 mls/hr IVPB DAILY [facility]; Protocol Last Admin: 08/08/18 09:42 Dose: 100 mls/hr Azithromycin 500 mg/ Sodium (Chloride) 250 mls @ 250 mls/hr IVPB DAILY [facility]; Protocol Last Admin: 08/08/18 09:42 Dose: 250 mls/hr Memantine (Namenda) 5 mg PO Q12 [facility] Last Admin: 08/08/18 09:39 Dose: 5 mg Pantoprazole Sodium (Protonix Ec Tab) 40 mg PO DAILY [facility] Last Admin: 08/08/18 09:40 Dose: 40 mg Fluticasone/Salmeterol (Advair Diskus 250/50) 1 puff IH Q12 [facility] Last Admin: 08/08/18 09:41 Dose: Not Given Sevelamer Carbonate (Renvela) 2,400 mg PO TID [facility] Last Admin: 08/08/18 09:39 Dose: 2,400 mg Tamsulosin HCl (Flomax) 0.4 mg PO DAILY [facility] Last Admin: 08/08/18 09:40 Dose: 0.4 mg Vitamin B Complex/Vit C/Folic Acid (Nephro-Jules) 1 tab PO DAILY [facility] Last Admin: 08/08/18 09:41 Dose: 1 tab - Labs Labs: 08/06/18 04:25 08/06/18 04:25 - Constitutional Appears: Non-toxic, Chronically Ill - Head Exam Head Exam: NORMOCEPHALIC - Eye Exam Eye Exam: absent: Scleral icterus - ENT Exam ENT Exam: Mucous Membranes Dry - Neck Exam Neck Exam: absent: Lymphadenopathy - Respiratory Exam Respiratory Exam: Prolonged Expiratory Phase, Rhonchi - Cardiovascular Exam Cardiovascular Exam: REGULAR RHYTHM - GI/Abdominal Exam GI & Abdominal Exam: Distended, Soft - Rectal Exam Rectal Exam: Deferred - Exam Exam: NORMAL INSPECTION Assessment and Plan (1) Pneumonia Status: Acute (2) Anemia in chronic kidney disease, on chronic dialysis Status: Chronic (3) End stage renal disease Status: Chronic - Assessment and Plan (Free Text) Assessment: cont wound care podiatry follow up for CT angio vascular / cardio on board
[2018-08-08 12:19] VITALS: BP 113/65; PULSE 108; TEMP 97.4; O2SAT 98
--- NOTE | 2018-08-09 02:16 | CP.PCM.DIS ---
Provider - Provider Date of Admission: 08/02/18 11:02 Attending physician: Galo Lopez MD Consults: 08/01/18 14:33 Nephrology Consult Stat Comment: Consulting Provider: Todd Matamoros Consulting Physician: Todd Matamoros Reason for Consult: ESRD dyalisis 08/01/18 15:20 Podiatry Consult Stat Comment: Consulting Provider: Devika Garcia Consulting Physician: Devika Garcia Reason for Consult: decubitus ulcers bilateral legs 08/01/18 17:17 Wound Care [Nursing Referral for Wound Care] Routine Comment: Physician Instructions: Reason For Exam: Decub ulcers, b/l foot 08/02/18 10:32 Social Work Referral Routine Comment: placement Physician Instructions: Reason For Exam: placement 08/05/18 05:34 Wound Care [Nursing Referral for Wound Care] Routine Comment: Physician Instructions: Reason For Exam: Perineal area wound 08/05/18 13:50 Infectious Disease Consult Routine Comment: infected wound Consulting Provider: El Sanabria Consulting Physician: El Sanabria Reason for Consult: infected wound 08/06/18 13:30 Vascular Surgery Routine Comment: Consulting Provider: Richard Donis Physician Instructions: Reason For Exam: Gangrenous changes L hallux Time Spent in preparation of Discharge (in minutes): 30 Hospital Course - Lab Results Lab Results: Micro Results 08/01/18 13:20 Blood-Venous Blood Culture - Final NO GROWTH AFTER 5 DAYS 08/01/18 13:20 Blood-Venous Gram Stain - Final TEST NOT PERFORMED 08/01/18 13:20 Blood-Venous Blood Culture - Final NO GROWTH AFTER 5 DAYS 08/01/18 13:20 Blood-Venous Gram Stain - Final TEST NOT PERFORMED 08/03/18 18:00 Leg - Left Gram Stain - Final 08/03/18 18:00 Leg - Left Wound Culture - Final Acinetobacter Baumannii Corynebacterium Species Most Recent Lab Values WBC 9.3 K/uL (4.8-10.8) 08/06/18 04:25 RBC 3.55 Mil/uL (4.40-5.90) L 08/06/18 04:25 Hgb 10.4 g/dL (12.0-18.0) L 08/06/18 04:25 Hct 31.8 % (35.0-51.0) L 08/06/18 04:25 MCV 89.4 fl (80.0-94.0) D 08/06/18 04:25 MCH 29.2 pg (27.0-31.0) 08/06/18 04:25 MCHC 32.7 g/dL (33.0-37.0) L 08/06/18 04:25 RDW 20.0 % (11.5-14.5) H 08/06/18 04:25 Plt Count 217 K/uL (130-400) 08/06/18 04:25 MPV 8.2 fl (7.2-11.7) 08/06/18 04:25 Neut % (Auto) 85.3 % (50.0-75.0) H 08/06/18 04:25 Lymph % (Auto) 5.1 % (20.0-40.0) L 08/06/18 04:25 Edgar % (Auto) 6.3 % (0.0-10.0) 08/06/18 04:25 Eos % (Auto) 0.2 % (0.0-4.0) 08/06/18 04:25 Baso % (Auto) 3.1 % (0.0-2.0) H 08/06/18 04:25 Neut # (Auto) 8.0 K/uL (1.8-7.0) H 08/06/18 04:25 Lymph # (Auto) 0.5 K/uL (1.0-4.3) L 08/06/18 04:25 Edgar # (Auto) 0.6 K/uL (0.0-0.8) 08/06/18 04:25 Eos # (Auto) 0.0 K/uL (0.0-0.7) 08/06/18 04:25 Baso # (Auto) 0.3 K/uL (0.0-0.2) H 08/06/18 04:25 Neutrophils % (Manual) 89 % (42-75) H 08/06/18 04:25 Band Neutrophils % 1 % (0-2) 08/01/18 13:20 Lymphocytes % (Manual) 4 % (20-50) L 08/06/18 04:25 Monocytes % (Manual) 5 % (0-10) 08/06/18 04:25 Basophils % (Manual) 2 % (0-2) 08/06/18 04:25 Hypersegmented Polys Present 08/01/18 13:20 Platelet Estimate Normal (NORMAL) 08/06/18 04:25 Poikilocytosis (manual Slight 08/06/18 04:25 Anisocytosis (manual) Slight 08/06/18 04:25 ESR 117 mm/hr (0-20) H 08/06/18 13:00 pO2 34 mm/Hg (30-55) 08/01/18 12:07 VBG pH 7.43 (7.32-7.43) 08/01/18 12:07 VBG pCO2 40 mmHg (40-60) 08/01/18 12:07 VBG HCO3 26.0 mmol/L 08/01/18 12:07 VBG Total CO2 27.7 mmol/L (22-28) 08/01/18 12:07 VBG O2 Sat (Calc) 65.7 % (40-65) H 08/01/18 12:07 VBG Base Excess 2.0 mmol/L (0.0-2.0) 08/01/18 12:07 VBG Potassium 7.0 mmol/L (3.6-5.2) H* 08/01/18 12:07 Sodium 142.0 mmol/L (132-148) 08/01/18 12:07 Chloride 107.0 mmol/L (98-107) 08/01/18 12:07 Glucose 96 mg/dL (75-110) 08/01/18 12:07 Lactate 2.6 mmol/L (0.7-2.1) H 08/01/18 12:07 FiO2 21.0 % 08/01/18 12:07 Crit Value Called To Sarah brown md 08/01/18 12:07 Crit Value Called By 15 08/01/18 12:07 Crit Value Read Back Y 08/01/18 12:07 Blood Gas Notified Time 1343 08/01/18 12:07 Sodium 133 mmol/l (132-148) 08/06/18 04:25 Potassium 5.4 MMOL/L (3.6-5.0) H 08/06/18 04:25 Chloride 94 mmol/L (98-107) L 08/06/18 04:25 Carbon Dioxide 28 mmol/L (22-30) 08/06/18 04:25 Anion Gap 16 (10-20) 08/06/18 04:25 BUN 67 mg/dl (9-20) H 08/06/18 04:25 Creatinine 7.6 mg/dl (0.8-1.5) H* D 08/06/18 04:25 Est GFR ( Amer) 8 08/06/18 04:25 Est GFR (Non-Af Amer) 7 08/06/18 04:25 POC Glucose (mg/dL) 109 mg/dL (65-110) 08/08/18 10:52 Random Glucose 95 mg/dL (75-110) 08/06/18 04:25 Calcium 9.3 mg/dL (8.4-10.2) 08/06/18 04:25 Phosphorus 7.4 mg/dl (2.5-4.5) H 08/03/18 05:25 Magnesium 2.6 MG/DL (1.6-2.3) H 08/03/18 05:25 Total Bilirubin 0.3 mg/dl (0.2-1.3) 08/06/18 04:25 AST 85 U/L (17-59) H 08/06/18 04:25 ALT 32 U/L (21-72) 08/06/18 04:25 Alkaline Phosphatase 79 U/L (38-126) 08/06/18 04:25 Total Creatine Kinase 819 U/L (55-170) H 08/01/18 14:50 Troponin I 0.0610 ng/mL (0.00-0.120) 08/01/18 14:50 Total Protein 6.2 G/DL (6.3-8.2) L 08/06/18 04:25 Albumin 2.9 g/dL (3.5-5.0) L 08/06/18 04:25 Globulin 3.3 gm/dL (2.2-3.9) 08/06/18 04:25 Albumin/Globulin Ratio 0.9 (1.0-2.1) L 08/06/18 04:25 Procalcitonin 1.65 NG/ML (0.19-0.49) H 08/05/18 15:41 Venous Blood Potassium 7.0 mmol/L (3.6-5.2) H* 08/01/18 12:07 Hep Bs Antigen Negative (NEGATIVE) 08/02/18 00:25 Hep Bs Antibody Negative (NEGATIVE) 08/02/18 00:25 Hep B Core IgM Ab Negative (NEGATIVE) 08/02/18 00:25 Influenza Typ A,B (EIA) Negative for flu a/b (NEGATIVE) 08/06/18 12:00 Blood Type B POSITIVE 08/03/18 10:08 Antibody Screen Negative 08/03/18 10:08 Crossmatch See Detail 08/03/18 10:08 BBK History Checked Patient has bt 08/03/18 10:08 - Hospital Course Hospital Course: Pt was admitted from home, where he was found with weakness after missing hemodialysis for one week. In the hospital, he was treated for hyperkalemia, received dialysis, and antibiotics for PNA. Wound care was also provided. He received dialysis on 08/08 and discharged to [facility] for subacute rehab. Discharge Exam - Head Exam Head Exam: NORMOCEPHALIC - Eye Exam Eye Exam: Normal appearance Pupil Exam: NORMAL ACCOMODATION - ENT Exam ENT Exam: Mucous Membranes Moist - Neck Exam Neck exam: Full Rom - Respiratory Exam Respiratory Exam: Decreased Breath Sounds - Cardiovascular Exam Cardiovascular Exam: REGULAR RHYTHM, +S1, +S2 - GI/Abdominal Exam GI & Abdominal Exam: Normal Bowel Sounds - Extremities Exam Extremities exam: normal inspection - Back Exam Back exam: NORMAL INSPECTION - Neurological Exam Neurological exam: Alert, Altered - Psychiatric Exam Psychiatric exam: Agitated - Skin Skin Exam: Dry Additional comments: wounds to legs. Discharge Plan - Discharge Medications Prescriptions: Azithromycin 500MG/NS 250ml [Zithromax 500mg in NS] 500 mg IV DAILY #4 bag cefTRIAXone 1 gm [Rocephin 1 gram IVPB] 1 gm IVPB DAILY #5 bag - Follow Up Plan Condition: FAIR Disposition: REHAB FACILITY/REHAB UNIT Instructions: Hyperkalemia (DC), Pneumonia, Adult (DC), End Stage Kidney Disease (DC) Additional Instructions: -subacute rehab at [facility], follow up with Primary Care provider Dr. St/Dr. Lopez/Aman Bedoya APN after. Referrals: Galo Lopez MD [Medical Doctor] -
== END 2018-08-08 15:55 | DRG 682 ==
LOC: H.ER 11:05 → H.ERHOLD 15:25 → H.TEL 20:06 → OBSVTOIN 08-02 11:02 → H.TEL 08-05 17:09
PROVIDERS: ADMIT Family Medicine; ATTEND Family Medicine
PROC: 5A1D70Z Performance of Urinary Filtration, Intermittent, Less than 6 Hours Per Day (ICD-10-PCS; principal; 2018-08-02)
DX: I12.0 Hypertensive chronic kidney disease with stage 5 chronic kidney disease or end stage renal disease (principal); N18.6 End stage renal disease; J18.9 Pneumonia, unspecified organism; N25.81 Secondary hyperparathyroidism of renal origin; I96 Gangrene, not elsewhere classified; L03.115 Cellulitis of right lower limb; L97.321 Non-pressure chronic ulcer of left ankle limited to breakdown of skin; E87.5 Hyperkalemia; D63.1 Anemia in chronic kidney disease; E87.70 Fluid overload, unspecified; L89.620 Pressure ulcer of left heel, unstageable; E83.39 Other disorders of phosphorus metabolism; Z91.15 Patient's noncompliance with renal dialysis; Z99.2 Dependence on renal dialysis; I87.2 Venous insufficiency (chronic) (peripheral); N40.0 Benign prostatic hyperplasia without lower urinary tract symptoms; L60.3 Nail dystrophy; I73.9 Peripheral vascular disease, unspecified; I08.1 Rheumatic disorders of both mitral and tricuspid valves; G30.9 Alzheimer's disease, unspecified; F02.80 Dementia in other diseases classified elsewhere, unspecified severity, without behavioral disturbance, psychotic disturbance, mood disturbance, and anxiety; M21.42 Flat foot [pes planus] (acquired), left foot; M21.41 Flat foot [pes planus] (acquired), right foot; R53.81 Other malaise; L85.3 Xerosis cutis; B96.89 Other specified bacterial agents as the cause of diseases classified elsewhere

== ENCOUNTER 2018-08-17 09:50 | Emergency (ER) | payer MEDICARE ==
[2018-08-17 09:51] VITALS: BMI 19.2
--- NOTE | 2018-08-17 13:38 | ED PDOC ---
Lower Extremity Pain/Injury Time Seen by Provider: 08/17/18 10:44 Chief Complaint (Nursing): Lower Extremity Problem/Injury Chief Complaint (Provider): Lower Extremity Problem/Injury History Per: Patient History/Exam Limitations: no limitations Additional Complaint(s): 82 years old male sent from long term to ER for evaluation of bilateral leg pain. Patient reports he had it for long time and denies pain now. History provided by long term. PMD: [facility] Past Medical History Reviewed: Historical Data, Nursing Documentation, Vital Signs Vital Signs: Last Vital Signs Temp 98 F 08/17/18 12:30 Pulse 85 08/17/18 12:30 Resp 18 08/17/18 12:30 BP 113/61 08/17/18 12:30 Pulse Ox 95 08/17/18 12:30 - Medical History PMH: Dementia, HTN, End Stage Renal Disease, Chronic Kidney Disease Denies: HIV - Surgical History Surgical History: No Surg Hx - Family History Family History: States: Unknown Family Hx - Social History Current smoker - smoking cessation education provided: No Alcohol: None Drugs: Denies - Home Medications Home Medications: Ambulatory Orders Medication Instructions Recorded Allopurinol [Zyloprim] 100 mg PO DAILY 08/01/18 Calcitriol [Rocaltrol] 1 mcg PO DAILY 08/01/18 Carvedilol [Coreg] 6.25 mg PO Q12 08/01/18 Donepezil [Aricept] 10 mg PO HS 08/01/18 Fluticasone/Vilanterol [Breo 1 puff IH DAILY 08/01/18 Ellipta 200-25 Mcg INH] Folic Acid/Vit B Complex and C 1 tab PO DAILY 08/01/18 [Renal Vitamin Tablet] Memantine [Namenda] 5 mg PO Q12 08/01/18 Tamsulosin [Flomax] 0.4 mg PO DAILY 08/01/18 amLODIPine [Norvasc] 5 mg PO DAILY 08/01/18 Albuterol/Ipratropium [Duoneb 3 3 ml INH RQ4 PRN neb 08/08/18 mg/0.5 mg (3 ml) UD] Aspirin [Aspirin Chewable] 81 mg PO DAILY chew 08/08/18 Clopidogrel [Plavix] 75 mg PO DAILY tab 08/08/18 Fluticasone Propionate [Flonase] 1 spr MAN BID bottle 08/08/18 Acetaminophen [Tylenol 325mg tab] 650 mg PO Q4 PRN 08/17/18 Acetaminophen [Tylenol 325mg tab] 650 mg PO Q4 PRN 08/17/18 Atorvastatin [Lipitor] 40 mg PO HS 08/17/18 Famotidine [Pepcid] 40 mg PO DAILY 08/17/18 Sevelamer Carbonate [Renvela] 2.4 gm PO TID 08/17/18 Silver Sulfadiazine 1% [Silvadene 1 appl TOP DAILY 08/17/18 1%] guaiFENesin [Robitussin] 5 ml PO Q8 08/17/18 - Allergies Allergies/Adverse Reactions: Allergies Allergy/AdvReac Type Severity Reaction Status Date / Time No Known Allergies Allergy Verified 08/01/18 11:15 Review of Systems ROS Statement: Except As Marked, All Systems Reviewed And Found Negative Musculoskeletal: Positive for: Leg Pain (Bilateral) Physical Exam - Reviewed Nursing Documentation Reviewed: Yes Vital Signs Reviewed: Yes - Physical Exam Appears: Positive for: Well, No Acute Distress Head Exam: Positive for: ATRAUMATIC Skin: Positive for: Normal Color, Warm, Dry Eye Exam: Positive for: Normal appearance, EOMI, PERRL Neck: Positive for: Normal, Painless ROM, Supple Cardiovascular/Chest: Positive for: Regular Rate, Rhythm. Negative for: Murmur Respiratory: Positive for: Normal Breath Sounds. Negative for: Respiratory Distress Gastrointestinal/Abdominal: Positive for: Normal Exam, Soft. Negative for: Tenderness Back: Positive for: Normal Inspection. Negative for: L CVA Tenderness, R CVA Tenderness Extremity: Positive for: Other (Multiple ulcer in distal lower legs). Negative for: Swelling (or redness of legs) Neurologic/Psych: Positive for: Alert, Oriented (x3) - ECG O2 Sat by Pulse Oximetry: 95 (RA) Pulse Ox Interpretation: Normal Medical Decision Making Medical Decision Making: Time: 1144 Initial Impression: Differential includes but not limited to pressure ulcer vs. stasis dermatitis, PVD and diabetic ulcer. Initial Plan: --US Duplex Lower Extremity Arterial Bilaterally --US Duplex Lower Extremity Vein Bilaterally 1400 Patient refuses US. Spoke to podiatry resident who will see patient at bedside. Scribe Attestation: Documented by Herminia Henderson, acting as a scribe for Crystal Wiseman MD. Provider Scribe Attestation: All medical record entries made by the Scribe were at my direction and personally dictated by me. I have reviewed the chart and agree that the record accurately reflects my personal performance of the history, physical exam, medical decision making, and the department course for this patient. I have also personally directed, reviewed, and agree with the discharge instructions and disposition. Disposition - Clinical Impression Clinical Impression: Skin ulcers of both feet, PVD (peripheral vascular disease) - Patient ED Disposition Is Patient to be Admitted: No Discussed With Dr.: [facility] Doctor Will See Patient In The: Office Counseled Patient/Family Regarding: Studies Performed, Diagnosis, Need For Followup - Disposition Referrals: [facility]t [facility] MD [Staff Provider] - Disposition: Other Institution (snf) Disposition Time: 14:36 Condition: GOOD Additional Instructions: VEDA RICHARDSON, thank you for letting us take care of you today. Your provider was Crystal Wiseman MD and you were treated for B/L LEG PAIN. The emergency medical care you received today was directed at your acute symptoms. If you were prescribed any medication, please fill it and take as directed. It may take several days for your symptoms to resolve. Return to the Emergency Department if your symptoms worsen, do not improve, or if you have any other problems. Please contact your doctor or call one of the physicians/clinics you have been referred to that are listed on the Patient Visit Information form that is included in your discharge packet. Bring any paperwork you were given at discharge with you along with any medications you are taking to your follow up visit. Our treatment cannot replace ongoing medical care by a primary care provider outside of the emergency department. Thank you for allowing the [facility] team to be part of your care today. If you had an X-Ray or CT scan: A Radiologist will review the ED reading if any change in treatment is needed we will contact you. If you had a blood, urine, or wound culture: It will take several days for the results, if any change in treatment is needed we will contact you. If you had an STI test: It will take 48 hours for the results. Please call after 1 week if you have not heard back. Instructions: Peripheral Vascular (Arterial) Disease (DC), Diabetic Foot Ulcer (DC)
[2018-08-17 17:59] VITALS: BP 114/65; PULSE 82; RESP 16; TEMP 98.2; O2SAT 97
== END 2018-08-17 18:56 | disposition short-term general hospital (02) ==
LOC: H.ER 09:50
DX: L97.519 Non-pressure chronic ulcer of other part of right foot with unspecified severity (principal); L97.529 Non-pressure chronic ulcer of other part of left foot with unspecified severity; I73.9 Peripheral vascular disease, unspecified; I12.0 Hypertensive chronic kidney disease with stage 5 chronic kidney disease or end stage renal disease; F03.90 Unspecified dementia, unspecified severity, without behavioral disturbance, psychotic disturbance, mood disturbance, and anxiety; N18.6 End stage renal disease